=== PATIENT | male | born 1965 | race Hispanic/Latino ===

== ENCOUNTER 2022-06-01 19:08 | Inpatient (IN) | payer BC ==
[2022-06-01 20:36] LABS: Absolute Lymphocytes (CBC) 1.9 K/uL (0.7-4.9); Hematocrit 45.6 % (39.6-49.0); Lymphocytes % 20.6 % (15.3-44.8); MCV 93.9 fL (80-100); MPV 9.5 fL (7.6-11.3); RBC Red Blood Cell Count 4.85 M/uL (4.33-5.43)
[2022-06-01] MEDS ORDERED: NA CHLORIDE 0.9% 1,000 ML ONE ×2 (20:46→22:08)
[2022-06-01 21:14] LABS: Urine Blood Trace-intact (Negative); Urine Glucose 2+ (Negative); Urine Protein Negative (Negative)
[2022-06-01 21:15] LABS: Arterial Blood Carboxyhemoglob 0.9 % (0-1.5); Blood Gas Oxyhemoglobin 92.9 % (94-97)
[2022-06-01 21:16] LABS: Albumin 3.9 g/dL (3.4-5.0); Bilirubin Total 0.7 mg/dL (0.2-1.0); Magnesium 2.4 mg/dL (1.8-2.4); Potassium 4.3 mmol/L (3.5-5.1); Protein, Total 8.5 g/dL (6.4-8.2); Troponin High Sensitivity 12.3 pg/mL (<58.9)
[2022-06-01 21:41] LABS: Urine RBC <5 /HPF (None Seen)
--- NOTE | 2022-06-01 21:54 | ER ---
Nurse's Notes [facility] Name: Adan Dong Age: 56 yrs Sex: Male : 1965 Arrival Date: 06/01/2022 Time: 19:20 Bed 17 Private MD: Diagnosis: New onset diabetes with diabetic ketoacidosis Presentation: 06/01 19:59 Chief complaint: Patient states: Sunday he had blood work by his primary care dr Dr. mile GURROLA in [place] called today and told results he needs to get to an ER; blurry vision and fatigue, thirsty, and peeing a lot. Alcoholism (beer daily), high pressure. Coronavirus screen: Vaccine status: Patient reports receiving the 2nd dose of the covid vaccine. Client denies travel out of the [place] in the last 14 days. At this time, the client does not indicate any symptoms associated with coronavirus-19. Ebola Screen: Patient negative for fever greater than or equal to 101.5 degrees Fahrenheit, and additional compatible Ebola Virus Disease symptoms Patient denies exposure to infectious person. Patient denies travel to an Ebola-affected area in the 21 days before illness onset. No acute neurological deficit is noted. Initial Sepsis Screen: Does the patient meet any 2 criteria? No. Patient's initial sepsis screen is negative. Does the patient have a suspected source of infection? No. Patient's initial sepsis screen is negative. Risk Assessment: Do you want to hurt yourself or someone else? Patient reports no desire to harm self or others. Onset of symptoms was May 2022. 19:59 Method Of Arrival: Ambulatory [facility] 19:59 Acuity: ROGELIO 3 5 Triage Assessment: 20:05 The onset of the patients symptoms was. General: Appears in no apparent distress. jh5 slender, well groomed, well developed, Behavior is calm, cooperative, appropriate for age. Pain: Denies pain. Neuro: Reports blurred vision. 22:32 The onset of the patients symptoms was. kl Historical: - Allergies: 20:05 No Known Allergies; jh5 - PMHx: 20:05 new onset diabetes; hyptertension; jh5 - PSHx: 20:05 None; jh5 - Immunization history:: Adult Immunizations up to date. - Social history:: Smoking status: Patient denies any tobacco usage or history of. Patient uses alcohol, on a daily basis. Screenin:55 Abuse screen: Denies threats or abuse. Nutritional screening: No deficits noted. kl Tuberculosis screening: No symptoms or risk factors identified. Fall Risk None identified. Assessment: 20:53 VAN Scoring: Arm Drift: Patients demonstrates NO arm weakness. Patient is VAN Negative. kl Patient has been NPO before screening. The patient is alert, and able to follow commands. The patient does not exhibit slurred or garbled speech. The patient is not exhibiting difficulty speaking. The patient is exhibiting difficulty understanding words. The patient is able to swallow own secretions with no drooling or need for suction. Patient tolerated one teaspoon of water. No drooling, immediate coughing, gurgling, or clearing of the throat was noted. The patient tolerated 90mL of water. No drooling, immediate coughing, gurgling, or clearing of the throat was noted. The patient passed the bedside swallow screening. Oral medications may be given as ordered. Contact Physician for further diet orders. TNKase (Tenecteplase) Screening: Indications:. 20:54 General: Appears in no apparent distress. comfortable, Behavior is calm, cooperative, kl Reports fatigue for. Pain: Denies pain. Neuro: No deficits noted. Cardiovascular: No deficits noted. Respiratory: No deficits noted. GI: No deficits noted. : No deficits noted. Vital Signs: 19:59 BP 125 / 87; Pulse 80; Resp 18; Temp 98.6; Pulse Ox 99% ; Weight 68.04 kg; Height 5 ft. jh5 6 in. (167.64 cm); Pain 0/10; 21:15 BP 122 / 84; Pulse 82; Resp 16; Pulse Ox 95% ; Pain 0/10; kl 22:32 BP 125 / 80; Pulse 69; Pulse Ox 95% on R/A; kl 23:06 BP 119 / 73; Pulse 70; kl 19:59 Body Mass Index 24.21 (68.04 kg, 167.64 cm) jh5 NIH Stroke Scale Scores: 20:53 NIHSS Score: 0 ED Course: 19:20 Patient arrived in ED. dt4 20:00 Tamela Mckeon MD is Attending Physician. sd2 20:05 Triage completed. jh5 20:05 Arm band placed on right wrist. jh5 20:29 Inserted saline lock: 20 gauge in right antecubital area, using aseptic technique. ds4 Blood collected. 21:16 ABG: Venous blood gas please NOT arterial Sent. 21:16 Magnesium Sent. 21:16 Troponin High Sensitivity Sent. 21:16 CMP Sent. 21:52 Davis Jimenez is Hospitalizing Provider. sd2 22:32 No provider procedures requiring assistance completed. Patient admitted, IV remains in kl place. 06/02 10:02 Monique Reed, RN is Primary Nurse. db Administered Medications: 06/01 20:53 Drug: NS 0.9% 1000 ml Route: IV; Rate: 1 bolus; Site: right antecubital; kl 22:22 Drug: NS 0.9% 1000 ml Route: IV; Rate: 1 bolus; Site: right forearm; kl 22:34 Drug: Insulin Drip - (Insulin Regular Human 100 units, NS 0.9% 100 ml) {Co-Signature: clarice horn (Akua Mahmood RN).} Route: IV; Rate: calculated rate; Site: right forearm; 22:35 Drug: Insulin Regular Human 10 units {Co-Signature: justina (Akua Mahmood RN).} Route: IVP; Site: right forearm; Medication: 20:55 VIS not applicable for this client. Point of Care Testing: Blood Glucose: 20:05 Blood Glucose: 500 mg/dL; [facility] Ranges: Outcome: 21:53 Decision to Hospitalize by Provider. sd2 22:32 Admitted to ER Hold. Please see [facility] for further documentation. 22:32 Condition: improved 22:32 Instructed on the need for admit. 06/02 17:32 Patient left the ED. mb8 NIH Stroke Scale - NIH Stroke Score Date: 06/01/2022 Time: 20:53 Total Score = 0 1a. Level of Consciousness (LOC) - 0(Alert) 1b. Level of Consciousness (LOC) (Month \T\ Age) - 0(Both) 1c. LOC Commands (Open \T\ Closes Eyes/Marketing Information Coordinator) - 0(Both) 2. Best Gaze (Lateral Gaze Paresis) - 0(Normal) 3. Visual Field Loss - 0(No visual loss) 4. Facial Palsy - 0(Normal) 5a. Left Arm: Motor (10-second hold) - 0(No drift) 5b. Right Arm: Motor (10-second hold) - 0(No drift) 6a. Left Leg: Motor (5-second hold - always test supine) - 0(No drift) 6b. Right Leg: Motor (5-second hold - always test supine) - 0(No drift) 7. Limb Ataxia (finger/nose \T\ heel/sykes - test with eyes open) - 0(Absent) 8. Sensory Loss (pinprick arms/legs/face) - 0(Normal) 9. Best Language: Aphasia (description/naming/reading) - 0(No aphasia) 10. Dysarthria (speech clarity - read or repeat words) - 0(Normal) 11. Extinction and Inattention (visual/tactile/auditory/spatial/personal) - 0(No abnormality) Initials: kl Signatures: Lien Booker RN RN Devyn Sloan ds4 Karla Villalobos RN RN 5 Tamela Mckeon MD MD sd2 Harshal Cui RN RN mb8 Nannette Bowser dt4 Monique Reed RN RN db Akua Mahmood RN bb Corrections: (The following items were deleted from the chart) 06/01 20:05 20:05 PMHx: None; [place] [id number]
--- NOTE | 2022-06-01 21:54 | EDPHYS ---
Physician Documentation [facility] Name: Adan Dong Age: 56 yrs Sex: Male : 1965 Arrival Date: 06/01/2022 Time: 19:20 Bed 17 Private MD: ED Physician Tamela Mckeon HPI: 06/01 20:15 This 56 yrs old Male presents to ER via Ambulatory with complaints of High sd2 Blood Sugar, Weakness, Redness of Eye. 20:15 56-year-old male presents with chief complaint of abnormal labs. He has had ongoing sd2 polyuria and polydipsia for the past week as well as weakness and was seen by his primary care doctor who performed labs on him and told him to come to the ER due to his blood sugar reading high. The patient has no prior history of diabetes but his father does have diabetes. He does take medications for hypertension but otherwise has no other medical problems. No recent illness or changes in medications or diet.. Historical: - Allergies: 20:05 No Known Allergies; jh5 - PMHx: 20:05 new onset diabetes; hyptertension; 5 - PSHx: 20:05 None; [facility] - Immunization history:: Adult Immunizations up to date. - Social history:: Smoking status: Patient denies any tobacco usage or history of. Patient uses alcohol, on a daily basis. ROS: 20:15 Constitutional: Negative for fever, chills, and weight loss, Cardiovascular: Negative sd2 for chest pain, palpitations, and edema, Respiratory: Negative for shortness of breath, cough, wheezing. Abdomen/GI: Negative for abdominal pain, nausea, vomiting, diarrhea. : Negative for dysuria or hematuria. Positive for frequency. MS/Extremity: Negative for injury and deformity, Skin: Negative for injury, rash, and discoloration, Neuro: Negative for headache, numbness and tingling. Endocrine: Positive for polyuria and polydipsia, hyperglycemia Exam: 20:15 Constitutional: This is a well developed, well nourished patient who is awake, alert, sd2 and in no acute distress. Head/Face: Normocephalic, atraumatic. Eyes: EOMI, normal conjunctiva bilaterally Chest/axilla: Normal chest wall appearance and motion. Nontender with no deformity. Cardiovascular: Regular rate and rhythm with a normal S1 and S2. No gallops, murmurs, or rubs. 2+ distal pulses. Respiratory: Lungs have equal breath sounds bilaterally, clear to auscultation and percussion. No rales, rhonchi or wheezes noted. No increased work of breathing, no retractions or nasal flaring. Abdomen/GI: Soft, non-tender, with normal bowel sounds. No guarding or rebound. No evidence of tenderness throughout. Skin: Warm, dry with normal turgor. Normal color with no rashes, no lesions, and no evidence of cellulitis. MS/ Extremity: Pulses equal, no cyanosis. Neurovascular intact. Full, normal range of motion. Ambulatory without difficulty. Psych: Awake, alert, with orientation to person, place and time. Behavior, mood, and affect are within normal limits. 20:41 ECG was reviewed by the Attending Physician. NSR, rate 76, no STEMI criteria, TWI in sd2 inferior leads Vital Signs: 19:59 BP 125 / 87; Pulse 80; Resp 18; Temp 98.6; Pulse Ox 99% ; Weight 68.04 kg; Height 5 ft. jh5 6 in. (167.64 cm); Pain 0/10; 21:15 BP 122 / 84; Pulse 82; Resp 16; Pulse Ox 95% ; Pain 0/10; kl 22:32 BP 125 / 80; Pulse 69; Pulse Ox 95% on R/A; kl 23:06 BP 119 / 73; Pulse 70; kl 19:59 Body Mass Index 24.21 (68.04 kg, 167.64 cm) jh5 NIH Stroke Scale Scores: 20:53 NIHSS Score: 0 kl MDM: 20:11 Patient medically screened. sd2 20:15 Differential diagnosis: Hyperglycemia, DKA, HHS, dehydration, electrolyte abnormality sd2 among others. Data reviewed: vital signs, nurses notes. 21:51 Data reviewed: lab test result(s), EKG. Counseling: I had a detailed discussion with sd2 the patient and/or guardian regarding: the historical points, exam findings, and any diagnostic results supporting the discharge/admit diagnosis, lab results, the need for further work-up and treatment in the hospital. ED course: Labs and imaging reviewed and consistent with DKA. Insulin bolus given and drip started and 2L NS given as well. Pt to be admitted for further management at this time. . 06/01 20:11 Order name: CBC with Diff; Complete Time: 20:40 sd2 06/01 20:11 Order name: CMP; Complete Time: 21:29 sd2 06/01 20:11 Order name: Magnesium; Complete Time: 21:29 sd2 06/01 20:11 Order name: Troponin High Sensitivity; Complete Time: 21:29 sd2 06/01 20:11 Order name: ABG: Venous blood gas please NOT arterial; Complete Time: 21:29 sd2 06/01 20:11 Order name: Urine Microscopic Only; Complete Time: 21:42 sd2 06/01 20:22 Order name: Glucose, Ancillary Testing; Complete Time: 20:40 EDMS 06/01 21:15 Order name: Urine Dipstick-Ancillary; Complete Time: 21:29 EDMS 06/01 22:37 Order name: SARS RAPID kl 06/01 23:44 Order name: SARS-COV-2 Antigen Rapid EDMS 06/01 23:48 Order name: Glucose, Ancillary Testing EDMS 06/02 00:53 Order name: Glucose, Ancillary Testing EDMS 06/02 01:11 Order name: Acetone Level EDMS 06/02 02:08 Order name: Glucose, Ancillary Testing EDMS 06/02 02:38 Order name: Basic Metabolic Panel EDMS 06/02 02:41 Order name: Osmolality, Serum EDMS 06/02 03:22 Order name: Glucose, Ancillary Testing EDMS 06/02 04:09 Order name: Glucose, Ancillary Testing EDMS 06/02 05:10 Order name: Glucose, Ancillary Testing EDMS 06/02 05:30 Order name: CBC with Automated Diff EDMS 06/02 05:39 Order name: Acetone Level EDMS 06/02 05:46 Order name: Basic Metabolic Panel EDMS 06/02 05:46 Order name: Phosphorus EDMS 06/02 05:46 Order name: Lipid Profile EDMS 06/02 05:46 Order name: Magnesium EDMS 06/02 06:19 Order name: Glucose, Ancillary Testing EDMS 06/02 07:13 Order name: Glucose, Ancillary Testing EDMS 06/02 08:08 Order name: Glucose, Ancillary Testing EDMS 06/02 09:10 Order name: Acetone Level EDMS 06/02 09:17 Order name: Glucose, Ancillary Testing EDMS 06/01 20:11 Order name: EKG - Nurse/Tech; Complete Time: 21:16 sd2 06/01 20:11 Order name: Glucose Level; Complete Time: 20:29 sd2 06/01 20:11 Order name: Urine Dipstick-Ancillary (obtain specimen); Complete Time: 21:16 sd2 06/02 09:42 Order name: Basic Metabolic Panel EDMS 06/02 10:13 Order name: Glucose, Ancillary Testing EDMS 06/02 11:11 Order name: Glucose, Ancillary Testing EDMS 06/02 11:53 Order name: Acetone Level EDMS 06/02 12:05 Order name: Basic Metabolic Panel EDMS 06/02 12:14 Order name: Glucose, Ancillary Testing EDMS 06/02 16:40 Order name: Hemoglobin A1c EDMS 06/02 16:51 Order name: Basic Metabolic Panel EDMS 06/02 16:51 Order name: Acetone Level EDMS 06/02 17:11 Order name: Glucose, Ancillary Testing EDMS Administered Medications: 20:53 Drug: NS 0.9% 1000 ml Route: IV; Rate: 1 bolus; Site: right antecubital; kl 22:22 Drug: NS 0.9% 1000 ml Route: IV; Rate: 1 bolus; Site: right forearm; kl 22:34 Drug: Insulin Drip - (Insulin Regular Human 100 units, NS 0.9% 100 ml) {Co-Signature: clarice horn (Akua Mahmood RN).} Route: IV; Rate: calculated rate; Site: right forearm; 22:35 Drug: Insulin Regular Human 10 units {Co-Signature: justina (Akua Mahmood RN).} Route: kl IVP; Site: right forearm; Point of Care Testing: Blood Glucose: 20:05 Blood Glucose: 500 mg/dL; jh5 Ranges: Critical Glucose Levels:Adult <50 mg/dl or >400 mg/dl <40 mg/dl or >180 mg/dl Disposition Summary: 06/01/22 21:53 Hospitalization Ordered Hospitalization Status: Inpatient Admission sd2 Provider: Davis Jimenez Condition: Stable sd2 Problem: new sd2 Symptoms: have improved sd2 Bed/Room Type: Standard co2 Location: Telemetry/MedSurg (Inpatient)(06/02/22 16:32) Room Assignment: [facility](06/02/22 16:32) dw Diagnosis - New onset diabetes with diabetic ketoacidosis sd2 Forms: - Medication Reconciliation Form sd2 - SBAR form sd2 NIH Stroke Scale - NIH Stroke Score Date: 06/01/2022 Time: 20:53 Total Score = 0 1a. Level of Consciousness (LOC) - 0(Alert) 1b. Level of Consciousness (LOC) (Month \T\ Age) - 0(Both) 1c. LOC Commands (Open \T\ Closes Eyes/Registration Manager) - 0(Both) 2. Best Gaze (Lateral Gaze Paresis) - 0(Normal) 3. Visual Field Loss - 0(No visual loss) 4. Facial Palsy - 0(Normal) 5a. Left Arm: Motor (10-second hold) - 0(No drift) 5b. Right Arm: Motor (10-second hold) - 0(No drift) 6a. Left Leg: Motor (5-second hold - always test supine) - 0(No drift) 6b. Right Leg: Motor (5-second hold - always test supine) - 0(No drift) 7. Limb Ataxia (finger/nose \T\ heel/sykes - test with eyes open) - 0(Absent) 8. Sensory Loss (pinprick arms/legs/face) - 0(Normal) 9. Best Language: Aphasia (description/naming/reading) - 0(No aphasia) 10. Dysarthria (speech clarity - read or repeat words) - 0(Normal) 11. Extinction and Inattention (visual/tactile/auditory/spatial/personal) - 0(No abnormality) Initials: clarice Signatures: Dispatcher [employer] Lien Marlow RN RN kl Webb, Martha, RN RN mw Woody, Diana, RN RN dw Rees, Jessica, RN RN jh5 Dunlop, Stephanie, MD MD sd2 Akua horn Corrections: (The following items were deleted from the chart) 20:05 20:05 PMHx: None; [facility] 22:27 21:53 [facility] 22:27 21:[facility] 06/02 16:32 06/01 22:27 [facility] ER HOLD [facility] 06/02 16:32 06/01 22:27 ERHOLD- [facility]
[2022-06-01] MEDS ORDERED: INSULIN -REGULAR HUMAN 50 UNIT/0.5 ML ML ONE (22:07)
[2022-06-01] MEDS ORDERED: NA CHLORIDE 0.9% 100 ML IV ONE (22:08)
--- NOTE | 2022-06-01 22:17 | P.HP ---
Certification for Inpatient Patient admitted to: Inpatient With expected LOS: <2 Midnights Patient will require the following post-hospital care: None Practitioner: I am a practitioner with admitting privileges, knowledge of patient current condition, hospital course, and medical plan of care. Services: Services provided to patient in accordance with Admission requirements found in Title 42 Section 412.3 of the Code of Federal Regulations Patient History Date of Service: 06/01/22 Primary Care Provider: Dr. Pham Reason for admission: DKA- New Onset History of Present Illness: Patient is a 56 year old male with hypertension who presented to the ED with complaints of blurry vision, fatigue, polyuria, and polydipsia. Patient reports that he had blood work done with his PCP on Sunday, the results came back today, and he was instructed to come to ED. He states that he used to be a daily beer drinker, but stopped about 3 weeks ago. He states he has lost 20 pounds since. His vital signs are stable today. Patient is awake, alert, and oriented x 3. He is chinese speaking only, but daughter is at bedside translating. His labs are significant for Na 124, Cl 86, glucose 665, BUN 46, Cr 2.13, K 4.3, gap of 17. ABG with pH 7.33, CO2 34.8, and HCO3 17.7. He was given 2L fluids, 10 units insulin, and started on insulin drip. Home medications list reviewed: Yes (NA) - Past Medical/Surgical History Diabetic: Yes -: Hypertension -: Type 2 Diabetes Past Surgical History: Patient denies surgical history Psychosocial/ Personal History: Patient is . - Family History Family History: Reviewed- Non-Contributory - Social History Smoking Status: Never smoker Alcohol use: Yes CD- Drugs: No Caffeine use: Yes Place of Residence: Home Review of Systems General: Weakness, Other (Fatigue) Eyes: Other (Blurry Vision) Genitourinary: Other (Polyuria, Polydipsia) Physical Examination - Physical Exam General: Alert, In no apparent distress HEENT: Atraumatic, PERRLA, EOMI, Sclerae nonicteric Neck: Supple, 2+ carotid pulse no bruit, No LAD, Without JVD or thyroid abnormality Respiratory: Clear to auscultation bilaterally, Normal air movement Cardiovascular: Regular rate/rhythm, Normal S1 S2 Gastrointestinal: Normal bowel sounds, No tenderness Musculoskeletal: No tenderness Integumentary: No rashes Neurological: Normal speech, Normal strength at 5/5 x4 extr, Normal tone, Normal affect - Studies Laboratory Data (last 24 hrs) 06/01/22 20:24: Sodium 124 L, Potassium 4.3, BUN 46 H, Creatinine 2.13 H, Glucose 665 H*, Magnesium 2.4, Total Bilirubin 0.7, AST 7 L, ALT 26, Alkaline Phosphatase 68 06/01/22 20:24: WBC 9.00, Hgb 15.2, Hct 45.6, Plt Count 213 Assessment and Plan - Problems (Diagnosis) (1) DKA (diabetic ketoacidosis) Current Visit: Yes Status: Acute Qualifiers: Diabetes mellitus type: type 2 Diabetes mellitus complication detail: without coma Qualified Code(s): E11.10 - Type 2 diabetes mellitus with ketoacidosis without coma (2) New onset type 2 diabetes mellitus Current Visit: Yes Status: Acute (3) Hypertension Current Visit: Yes Status: Chronic Qualifiers: Hypertension type: primary hypertension Qualified Code(s): I10 - Essential (primary) hypertension - Plan -Insulin drip initiated in ED. Continue per DKA protocol -Aggressive IV fluid hydration -BMP and acetone q4h -A1C and lipid panel in morning -NPO, ice chips and sips of water ok. Patient does not c/o nausea/vomiting -Nephrology consult -Diabetic education counseling -Monitor and replete electrolytes per protocol -Patient denies taking any medications daily -Lovenox for VTE prophylaxis -Full code Discharge Plan: Home Plan to discharge in: 48 Hours - Advance Directives Does patient have a Living Will: No Does patient have a Durable POA for Healthcare: No - Code Status/Comfort Care Code Status Assessed: Yes (Full) Critical Care: No Time Spent Managing Pts Care (In Minutes): 50
[2022-06-01] MEDS ORDERED: NACHLORIDE 0.45% 1,000 ML with POTASSIUM CL 20 MEQ IV SCH ×2 (23:36)
[2022-06-01] MEDS ORDERED: ONDANSETRON 4 MG/2 ML VIAL IV PRN (23:36)
[2022-06-01] MEDS ORDERED: INSULIN -REGULAR HUMAN 100 UNIT in NA CHLORIDE 0.9% 100 ML IV SCH (23:36)
[2022-06-01] MEDS: D5.45NS W/KCL 20MEQ 1,000 ML IV SCH (23:36)
[2022-06-01 23:44] LABS: SARS-CoV-2 Antigen Rapid Res Negative (Negative)
[2022-06-02 00:12] VITALS: BMI 24.1
[2022-06-02] MEDS ORDERED: KCL 20 MEQ/100 mL IVPB 100 ML IV ONE (00:22)
[2022-06-02] MEDS ORDERED: NACHLORIDE 0.45% 1,000 ML IV ONE (00:22)
[2022-06-02 02:34] LABS: BUN Blood Urea Nitrogen 39 mg/dL (7-18); Bicarbonate 22 mmol/L (21-32); Glomerular Filtration Rate 47 ml/min (=/>90); Glucose Level 251 mg/dL (74-106); Potassium 3.7 mmol/L (3.5-5.1); Sodium Level 134 mmol/L (136-145)
[2022-06-02] MEDS: D5.45NS W/KCL 20MEQ 1,000 ML IV SCH ×2 (03:18→09:36)
[2022-06-02] MEDS ORDERED: INSULIN GLARGINE 100 UNIT/ML SQ ONE ×2 (05:00→05:07)
[2022-06-02 05:24] LABS: Absolute Lymphocytes (CBC) 2.3 K/uL (0.7-4.9); Hematocrit 39.8 % (39.6-49.0); Lymphocytes % 29.4 % (15.3-44.8); MCV 91.2 fL (80-100); MPV 9.1 fL (7.6-11.3); RBC Red Blood Cell Count 4.37 M/uL (4.33-5.43)
[2022-06-02 05:46] LABS: BUN Blood Urea Nitrogen 35 mg/dL (7-18); Bicarbonate 24 mmol/L (21-32); Glomerular Filtration Rate 55 ml/min (=/>90); Glucose Level 197 mg/dL (74-106); HDL Cholesterol 37 mg/dL (40-60); LDL Cholesterol, Calculated 121 mg/dL (<130); Magnesium 2.4 mg/dL (1.8-2.4); Phosphorus 2.7 mg/dL (2.5-4.9); Potassium 3.9 mmol/L (3.5-5.1); Sodium Level 137 mmol/L (136-145)
[2022-06-02] MEDS ORDERED: ENOXAPARIN 40 MG/0.4 ML SQ ONE (07:54)
[2022-06-02] MEDS: ENOXAPARIN 40 MG/0.4 ML SQ SCH (08:11)
[2022-06-02] MEDS ORDERED: D5.45NS W/KCL 20MEQ 1,000 ML IV ONE (09:33)
[2022-06-02 09:40] LABS: BUN Blood Urea Nitrogen 31 mg/dL (7-18); Bicarbonate 24 mmol/L (21-32); Glomerular Filtration Rate 61 ml/min (=/>90); Glucose Level 202 mg/dL (74-106); Potassium 4.7 mmol/L (3.5-5.1); Sodium Level 136 mmol/L (136-145)
[2022-06-02 12:05] LABS: BUN Blood Urea Nitrogen 29 mg/dL (7-18); Bicarbonate 26 mmol/L (21-32); Glomerular Filtration Rate 64 ml/min (=/>90); Glucose Level 183 mg/dL (74-106); Potassium 4.1 mmol/L (3.5-5.1); Sodium Level 136 mmol/L (136-145)
[2022-06-02] MEDS ORDERED: D50W 25 GM/50 ML SYRINGE IV PRN (12:05)
[2022-06-02] MEDS ORDERED: GLUCAGON 1 MG/VIAL IM PRN (12:05)
[2022-06-02] MEDS ORDERED: D10W 125 ML IV PRN (12:11)
[2022-06-02] MEDS: INSULIN -REGULAR HUMAN 50 UNIT/0.5 ML ML SQ SCH ×2 (16:30→22:03)
[2022-06-02 16:47] LABS: BUN Blood Urea Nitrogen 30 mg/dL (7-18); Bicarbonate 24 mmol/L (21-32); Glomerular Filtration Rate 58 ml/min (=/>90); Glucose Level 360 mg/dL (74-106); Potassium 4.8 mmol/L (3.5-5.1); Sodium Level 136 mmol/L (136-145)
[2022-06-02] MEDS ORDERED: INSULIN -REGULAR HUMAN 50 UNIT/0.5 ML ML ONE (17:05)
[2022-06-02] MEDS: INSULIN GLARGINE 100 UNIT/ML SQ SCH (17:40)
--- NOTE | 2022-06-02 17:49 | P.PN ---
Subjective Date of Service: 06/02/22 Primary Care Provider: Dr. Pham Chief Complaint: DKA- New Onset Patient has no new complaints. Blood sugar levels improved and patient weaned off insulin drip to subcutaneous insulin. Physical Examination - Vital Signs Temperature: 97.2 F Blood Pressure: 116/68 Pulse: 75 Respirations: 15 Pulse Ox (%): 98 - Studies Laboratory Data (last 24 hrs) 06/01/22 20:24: Sodium 124 L, Potassium 4.3, BUN 46 H, Creatinine 2.13 H, Glucose 665 H*, Magnesium 2.4, Total Bilirubin 0.7, AST 7 L, ALT 26, Alkaline Phosphatase 68 06/01/22 20:24: WBC 9.00, Hgb 15.2, Hct 45.6, Plt Count 213 Assessment And Plan - Current Problems (Diagnosis) (1) DKA (diabetic ketoacidosis) Current Visit: Yes Status: Acute Qualifiers: Diabetes mellitus type: type 2 Diabetes mellitus complication detail: without coma Qualified Code(s): E11.10 - Type 2 diabetes mellitus with ketoacidosis without coma (2) Chronic kidney disease, stage III (moderate) Current Visit: Yes Status: Acute - Plan Physical Exam General: Alert, In no apparent distress Respiratory: Clear to auscultation bilaterally, Normal air movement Cardiovascular: Regular rate/rhythm, Normal S1 S2 Gastrointestinal: Normal bowel sounds, No tenderness Musculoskeletal: No tenderness Integumentary: No rashes Neurological: No focal motor deficit. Plan: Patient weaned off insulin drip and transition to Lantus insulin and insulin sliding scale. Titrate Lantus insulin. Diabetes education. ADA diet. Fingerstick glucose monitoring. Monitor renal function.
[2022-06-03 05:39] LABS: Absolute Lymphocytes (CBC) 2.2 K/uL (0.7-4.9); Hematocrit 41.8 % (39.6-49.0); Lymphocytes % 32.9 % (15.3-44.8); MCV 91.2 fL (80-100); MPV 9.2 fL (7.6-11.3); RBC Red Blood Cell Count 4.58 M/uL (4.33-5.43)
[2022-06-03 05:47] LABS: Magnesium 2.4 mg/dL (1.8-2.4); Phosphorus 2.1 mg/dL (2.5-4.9); Potassium 4.4 mmol/L (3.5-5.1)
[2022-06-03] MEDS: INSULIN -REGULAR HUMAN 50 UNIT/0.5 ML ML SQ SCH ×2 (07:30→11:30)
[2022-06-03] MEDS: INSULIN GLARGINE 100 UNIT/ML SQ SCH (08:27)
[2022-06-03] MEDS: ENOXAPARIN 40 MG/0.4 ML SQ SCH (08:27)
[2022-06-03 09:40] VITALS: O2SAT 97
[2022-06-03] MEDS ORDERED: INSULIN GLARGINE 100 UNIT/ML SQ ONE (12:44)
--- NOTE | 2022-06-03 12:45 | P.DS ---
Admission Date: 06/01/22 Discharge Date: 06/03/22 Primary Care Provider: Dr. Pham Disposition: ROUTINE DISCHARGE Discharge Condition: FAIR Reason for Admission: DKA- New Onset - Problems (1) DKA (diabetic ketoacidosis) Current Visit: Yes Status: Acute Qualifiers: Diabetes mellitus type: type 2 Diabetes mellitus complication detail: without coma Qualified Code(s): E11.10 - Type 2 diabetes mellitus with ketoacidosis without coma (2) Chronic kidney disease, stage III (moderate) Current Visit: Yes Status: Acute Brief History of Present Illness: Patient is a 56 year old male with hypertension who presented to the ED with complaints of blurry vision, fatigue, polyuria, and polydipsia. Patient reports that he had blood work done with his PCP who later instructed him to come to the ED because of abnormal test results. He stated that he used to be a daily beer drinker, but stopped about 3 weeks ago. He stated he has lost 20 pounds since. No altered mental status noted. He is british speaking only. His labs showed Na 124, Cl 86, glucose 665, BUN 46, Cr 2.13, K 4.3, gap of 17. ABG with pH 7.33, CO2 34.8, and HCO3 17.7. He was given 2L fluids, 10 units insulin, and and DKA protocol initiated. Hospital Course: Patient admitted to the ICU on DKA protocol with insulin drip and aggressive IV hydration. BMP was monitored per DKA protocol. DKA resolved within 24 hours. Newly diagnosed diabetes. Patient was transitioned to subcutaneous insulin- Lantus insulin and regular insulin sliding scale. Noted he has CKD 3. Lantus insulin was titrated up to 33 units. Diabetes education provided. Patient discharged with Lantus insulin Vital Signs/Physical Exam: Temp Pulse Resp BP Pulse Ox 98.3 F 56 15 134/72 97 06/03/22 08:00 06/03/22 08:00 06/03/22 08:00 06/03/22 08:00 06/03/22 08:00 General: Alert, In no apparent distress, Oriented x3 HEENT: Mucous membr. moist/pink Neck: Supple, JVD not distended Respiratory: Clear to auscultation bilaterally, Normal air movement Cardiovascular: No edema, Regular rate/rhythm, Normal S1 S2 Gastrointestinal: Normal bowel sounds, Soft and benign, Non-distended, No tenderness Musculoskeletal: No swelling Integumentary: No rashes, No cyanosis Neurological: Normal strength at 5/5 x4 extr Laboratory Data at Discharge: WBC 6.60 K/uL (4.3-10.9) 06/03/22 05:08 Hgb 14.4 g/dL (13.6-17.9) 06/03/22 05:08 Hct 41.8 % (39.6-49.0) 06/03/22 05:08 Plt Count 174 K/uL (152-406) 06/03/22 05:08 Sodium 138 mmol/L (136-145) 06/03/22 05:08 Potassium 4.4 mmol/L (3.5-5.1) 06/03/22 05:08 BUN 24 mg/dL (7-18) H 06/03/22 05:08 Creatinine 1.42 mg/dL (0.55-1.3) H 06/03/22 05:08 Glucose 239 mg/dL (74-106) H 06/03/22 05:08 Phosphorus 2.1 mg/dL (2.5-4.9) L 06/03/22 05:08 Magnesium 2.4 mg/dL (1.8-2.4) 06/03/22 05:08 Total Bilirubin 0.7 mg/dL (0.2-1.0) 06/01/22 20:24 AST 7 U/L (15-37) L 06/01/22 20:24 ALT 26 U/L (12-78) 06/01/22 20:24 Alkaline Phosphatase 68 U/L (45-117) 06/01/22 20:24 Triglycerides 287 mg/dL (<150) H 06/02/22 05:07 Cholesterol 215 mg/dL (<200) H 06/02/22 05:07 HDL Cholesterol 37 mg/dL (40-60) L 06/02/22 05:07 Cholesterol/HDL Ratio 5.81 06/02/22 05:07 Home Medications: Lisinopril/Hydrochlorothiazide [Lisinopril-Hctz 10-12.5 mg Tab] 1 tab PO DAILY 06/02/22 Nystatin 06/02/22 Alcohol Antiseptic Pads [Alcohol Swabs] 1 each TP TID #100 pad 06/03/22 Blood Sugar Diagnostic, Disc [Breeze 2] 1 each MC TID #30 strip 06/03/22 Blood-Glucose Meter [Blood Glucose Monitoring] 1 each MC TID #1 kit 06/03/22 Insulin Glargine,Hum.rec.anlog [Lantus Solostar] 30 unit SQ DAILY #15 ml 06/03/22 Pen Needle, Diabetic [Insulin Pen Needle] 1 dis.ndl MC TID #100 dis.ndl 06/03/22 New Medications: Alcohol Antiseptic Pads [Alcohol Swabs] 1 each TP TID #100 pad Blood-Glucose Meter [Blood Glucose Monitoring] 1 each MC TID #1 kit Blood Sugar Diagnostic, Disc [Breeze 2] 1 each MC TID #30 strip Pen Needle, Diabetic [Insulin Pen Needle] 1 dis.ndl MC TID #100 dis.ndl Insulin Glargine,Hum.rec.anlog [Lantus Solostar] 30 unit SQ DAILY #15 ml Diet: ADA Activity: Ad kaveh Followup: MAGED LYNNE [Primary Care Provider] - 1 Week (call to schedule an appointment) Time spent managing pt's care (in minutes): 35
[2022-06-03 13:17] VITALS: BP 130/77; TEMP 97.5
--- NOTE | 2022-06-03 16:56 | EKG ---
Test Date: 2022-06-01 Test Time: 20:31:06 Network Coordinator: ALYSHA MEASUREMENT RESULTS: Intervals: Rate: 76 [place]: 134 QRSD: 74 QT: 370 QTc: 416 [place]: P: 54 [place]: 134 QRS: 36 T: 5 INTERPRETIVE STATEMENTS: Normal sinus rhythm Nonspecific T wave abnormality Abnormal ECG No previous ECG available for comparison Electronically Signed On 06-03-22 16:53:59 CDT by Christoph Underwood
== END 2022-06-03 13:25 | disposition home or self-care (01) | DRG 639 ==
LOC: ER 19:08 → ERHOLD 22:38 → 4TH 06-02 17:19
PROVIDERS: ADMIT Internal Medicine; ATTEND Internal Medicine
DX: E11.10 Type 2 diabetes mellitus with ketoacidosis without coma (principal); I12.9 Hypertensive chronic kidney disease with stage 1 through stage 4 chronic kidney disease, or unspecified chronic kidney disease; E11.22 Type 2 diabetes mellitus with diabetic chronic kidney disease; N18.30 Chronic kidney disease, stage 3 unspecified; Z71.3 Dietary counseling and surveillance; Z20.822 Contact with and (suspected) exposure to COVID-19
CPT/HCPCS: 36415; 80048; 80053; 80061; 81003; 81015; 82010; 82805; 82947; 83036; 83735; 83930; 84100; 84484; 85025; 87811; 93005; 96374; 99285; J1650; J1815; J3480; J7030

== ENCOUNTER 2024-06-08 10:21 | Inpatient (IN) | payer BC ==
--- OUTSIDE RECORDS SUMMARY | 2024-06-08 10:24 | XMS REPORT | Continuity of Care Document ---
Author Name Unknown Address [address] [facility] [address] [place] [address] [facility] thconnect Address [address] [facility] [address] [place] [address] Care Team Providers Care Renal Nurse Name Role Phone Bonita Powers Primary Care Physician [phone] Medications Ordered Medication Name Filled Medication Name Start Date Stop Date Current Medication? Ordering Clinician Indication Dosage Frequency Signature (SIG) Comments Components Source Flonase Allergy Relief 50 mcg/actuati on nasal spray,suspe nsion 2023-08 0-05 00:00: 00 Yes 1mcg/ac tuation Gino Ivey atorvastati n 20 mg tablet 7-31 00:00: 00 Yes 1mg Gino Ivey atorvastati n 10 mg tablet 7-27 00:00: 00 Yes mg Gino Ivey lisinopril 10 mg-hydrochl orothiazide 12.5 mg tablet 7-27 00:00: 00 Yes mg Gino Ivey metformin ER 500 mg tablet,exte nded release 24 hr -27 00:00: 00 Yes mg Gino Ivey atorvastati n 10 mg tablet 5-25 00:00: 00 Yes mg Gino Ivey lisinopril 10 mg-hydrochl orothiazide 12.5 mg tablet 5-25 00:00: 00 Yes mg Gino Ivey metformin ER 500 mg tablet,exte nded release 24 hr 5-25 00:00: 00 Yes mg Gino Ivey atorvastati n 10 mg tablet 0 2-06 00:00: 00 Yes mg Gino Ivey lisinopril 10 mg-hydrochl orothiazide 12.5 mg tablet 2-06 00:00: 00 Yes mg Gino Ivey TAKE 1 TABLET EVERY 6 TO 8 HOURS NEEDED FOR COUGH. 2022-08 00:00: 00 09-20 00:00 :00 No 100 Gino Ivey TAKE 1 TABLET DAILY. 2022-08 00:00: 00 09-20 00:00 :00 No 10 Gino Ivey metformin ER 500 mg tablet,exte nded release 24 hr - 00:00: 00 Yes mg Gino Ivey TAKE 1 TABLET BY MOUTH EVERY DAY - 00:00: 00 Yes Gino Ivey TAKE 1 TABLET BY MOUTH AT BEDTIME 04-02 00:00: 00 Yes Gino Ivey TAKE 1 TABLET BY MOUTH EVERY DAY 12-18 00:00: 00 Yes Gino Ivey LISINOP/HCT Z 10-12.5 3-07 00:00: 00 Yes Gino Ivey FAMOTIDINE 40 MG TABS - 00:00: 00 Yes 40 Gino Ivey PIOGLITAZON E HCL 15 MG TABS -17 00:00: 00 Yes 15 Gino Ivey TAKE 1 TABLET BY MOUTH EVERY DAY 2021-08 00:00: 00 Yes Gino Ivey LISINOP/HCT Z 10-12.5 2021-08 2- 00:00: 00 Yes Gino Ivey TAKE 2 TABLETS BY MOUTH TWICE DAILY WITH THE EVENING MEAL 2021-08 00:00: 00 Yes Gino Ivey TAKE 2 TABLETS BY MOUTH TWICE DAILY 2021-08 00:00: 00 Yes Gino Ivey ATORVASTATI N CALCIUM 10 MG TABS 2021-08 0- 00:00: 00 Yes 10 Gino Ivey ADMINISTER 30 UNITS UNDER THE SKIN DAILY 2021-08 0- 00:00: 00 Yes Gino Ivye TAKE 1 TABLET BY MOUTH EVERY DAY 2021-08 0 00:00: 00 Yes Gino Ivey SWISH AND SPIT 4 ML BY MOUTH FOUR TIMES DAILY FOR 14 DAYS 2021-08- 00:00: 00 Yes Gino Niesha Ivey Vital Signs Vital Name Observation Time Observation Value Comments S donnell BP Systolic 2024-05-17 09:34:00 150 mm[Hg] Step hen F Uche BP Diastolic 2024-05-17 09:34:00 85 mm[Hg] Ubaldo phen F Uche Weight Measured 2024-05-17 09:34:00 181.80 pounds Gino F Uche Height Measured 2024-05-17 09:34:00 66.00 inches Gino F Uche Body Temperature 2024-05-17 09:34:00 97.90 degrees Gino F Uche Heart Rate 2024-05-17 09:34:00 65.00 /min Martita en F Uche Respiratory Rate 2024-05-17 09:34:00 16.00 /min Gino F Uche BP Systolic 2024-03-08 11:36:00 131 mm[Hg] Step hen F Uche BP Diastolic 2024-03-08 11:36:00 78 mm[Hg] Ubaldo phen F Uche Weight Measured 2024-03-08 11:36:00 185.20 pounds Gino F Uche Height Measured 2024-03-08 11:36:00 66.00 inches Gino F Uche Body Temperature 2024-03-08 11:36:00 97.50 degrees Gino F Uche Heart Rate 2024-03-08 11:36:00 60.00 /min Martita en F Uche Respiratory Rate 2024-03-08 11:36:00 18.00 /min Gino F Uche Heart Rate 2024-01-05 14:33:00 90.00 /min Martita en F Uche Respiratory Rate 2024-01-05 14:33:00 16.00 /min Gino F Uche BP Systolic 2024-01-05 14:33:00 133 mm[Hg] Step hen F Uche BP Diastolic 2024-01-05 14:33:00 77 mm[Hg] Ubaldo phen F Uche Weight Measured 2024-01-05 14:33:00 185.80 pounds Gino F Uche Height Measured 2024-01-05 14:33:00 66.00 inches Gino F Uche Body Temperature 2024-01-05 14:33:00 98.20 degrees Gino F Uche BP Systolic 2023-04-02 09:30:00 152 mm[Hg] Step hen F Uche BP Diastolic 2023-04-02 09:30:00 91 mm[Hg] Ubaldo Ivey Weight Measured 2023-04-02 09:30:00 166.80 pounds Gino Ivey Height Measured 2023-04-02 09:30:00 66.00 inches Gino Ivey Body Temperature 2023-04-02 09:30:00 98.10 degrees Gino Ivey Heart Rate 2023-04-02 09:30:00 96.00 /min Martita Ivey Respiratory Rate 2023-04-02 09:30:00 17.00 /min Gino Ivey Encounters Start Date/Time End Date/Time Encounter Type Admission Type Attending [facility] Care Department Encounter ID Source 2024-05-17 09:25:34 2024-05-17 09:25:34 Outpatient [facility] [id number] Gino Ivey 2024-05-17 00:00:00 2024-05-17 00:00:00 Outpatient Visit [facility] [id number] Gino Ivey 2024-03-08 00:00:00 2024-03-08 00:00:00 Outpatient Visit [facility] [id number] Gino Ivey 2024-01-05 14:24:27 2024-01-05 14:24:27 Outpatient [facility] [id number] Gino Ivey 2024-01-05 00:00:00 2024-01-05 00:00:00 Outpatient Visit [facility] [id number] Gino Ivey 2023-04-02 09:16:14 2023-04-02 09:16:14 Outpatient [facility] [id number] Gino Ivey Results Test Description Test Time Test Comments Results Result Co mments Source COMPREHENSIVE METABOLIC [id number] 00:00:00* Test Item Value Reference Range Interpretation Comme nts GLUCOSE (test code = 2217) 107 MG/DL BUN (test code = 2208) 23 MG/DL CREATININE (test code = 2214) 1.61 MG/DL eGFR (2020 CKD-EPI) (test co de = 15572) 50 ML/MIN/1.73 CALC BUN/CREAT (test code = 2235) 14 RATIO SODIUM (test code = 2231) 139 MEQ/L POTASSIUM (test code = 2228) 4.3 MEQ/L CHLORIDE (test code = 2215) 102 MEQ/L CARBON DIOXIDE (test code = 2206) 23 MEQ/L CALCIUM (test code = 2209) 9.3 MG/DL PROTEIN, TOTAL (test code = 2229) 7.3 G/DL ALBUMIN (test code = 2201) 4.7 G/DL CALC GLOBULIN (test code = 2240) 2.6 G/DL CALC A/G RATIO (test code = 2234) 1.8 RATIO BILIRUBIN, TOTAL (test code = 2207) 0.6 MG/DL ALKALINE PHOSPHATASE (test code = 2204) 50 U/L AST (test code = 2218) 14 U/L ALT (test code = 2219) 17 U/L Gino IveyHEMOGLOBIN [id number] 02:28:01* Test Item Value Reference Range Interpretation Comme nts HEMOGLOBIN A1c (test code = 72232) 6.7 % 4.2-5.6 H [employer] GUIDELINES FOR HGB A1C: PREDIABETES/INCREASED RISK . . . . . . . 5.7-6.4% DIAGNOSIS OF DIABETES . . . . . . . . . >=6.5% WITH CONFIRMATION OR APPROPRIATE SYMPTOMS NOTE: ASSAY MAY BE AFFECTED BY HEMOGLOBINOPATHIES (SICKLE CELL ANEMIA, S-C DISEASE, OTHERS) OR ARTIFICIALLY LOWERED BY DECREASED RED CELL SURVIVAL (HEMOLYTIC ANEMIAS, BLOOD LOSS, ETC.). CONSIDER ALTERNATE TESTING OR LABORATORY CONSULTATION. UNLESS OTHERWISE INDICATED, ALL TESTING PERFORMED AT [facility] [address] [place] [address] QUALITY CONTROL ASSISTANT: MONI SAN M.D. [place] NUMBER [id number] [facility] [place]. [id number] HEMOGLOBIN [id number] 00:00:00* Test Item Value Reference Range Interpretation Comme nts HEMOGLOBIN A1c (test code = 76296) 6.7 % Gino IveyLIPID [id number] 00:40:01* Test Item Value Reference Range Interpretation Comme nts CHOLESTEROL (test code = 2210) 201 MG/DL <200 H TRIGLYCERIDES (test code = 2232) 155 MG/DL <150 H HDL CHOLESTEROL (test code = 2220) 57 MG/DL >39 CALC LDL CHOL (test code = 7) 117 MG/DL <100 H NOTE: CALCULATED LDL IS BASED ON SAHRA-PEREIRA METHOD WHICHINCLUDES ADJUSTABLE TRIGLYCERIDE:VLDL CHOLESTEROL RATIO.THIS FACTOR VARIES BY MEASURED TRIGLYCERIDE AND NON-HDLCHOLESTEROL CONCENTRATIONS WITH INCREASED CALCULATED LDL SEENIN HIGHER TRIGLYCERIDE OR LOWER NON-HDL SPECIMENS. FOR MOREINFORMATION, SEE CLIENT ANNOUNCEMENT AT [email or web address] RISK RATIO LDL/HDL (test code = 2237) 2.05 RATIO <3.55 COMPREHENSIVE METABOLIC [id number] 00:40:01* Test Item Value Reference Range Interpretation Comme nts GLUCOSE (test code = 2216) 112 MG/DL 70-99 H BUN (test code = 2207) 21 MG/DL 6-20 H CREATININE (test code = 2213) 1.54 MG/DL 0.80-1.40 H eGFR (2020 CKD-EPI) (test code = 92387) 53 ML/MIN/1.73 >60 L The NKF-ASN Taskforce recommends use of Cystatin C to confirm eGFR inadults at risk for CKD. [facility] offers eGFR with Cystatin C-Creatinineusing the 2020 CKD-EPI eGFR_creat-cystat equation (order code 3057) toincrease the accuracy of estimated GFR. For more information, contactyour radio sales account executive or see announcement [email or web address] CALC BUN/CREAT (test code = 2234) 14 RATIO 6-28 SODIUM (test code = 2230) 139 MEQ/L 133-146 POTASSIUM (test code = 2227) 4.9 MEQ/L 3.5-5.4 CHLORIDE (test code = 2214) 99 MEQ/L 95-107 CARBON DIOXIDE (test code = 2205) 24 MEQ/L 19-31 CALCIUM (test code = 2208) 9.9 MG/DL 8.5-10.5 PROTEIN, TOTAL (test code = 2228) 7.7 G/DL 6.1-8.3 ALBUMIN (test code = 2200) 5.0 G/DL 3.5-5.2 CALC GLOBULIN (test code = 2240) 2.7 G/DL 1.9-3.7 CALC A/G RATIO (test code = 2234) 1.9 RATIO 1.0-2.6 BILIRUBIN, TOTAL (test code = 2207) 0.3 MG/DL <=1.2 ALKALINE PHOSPHATASE (test code = 2204) 51 U/L 40-123 AST (test code = 2218) 14 U/L 9-50 ALT (test code = 2219) 15 U/L 5-50 LIPID [id number] 00:00:00* Test Item Value Reference Range Interpretation Comme nts CHOLESTEROL (test code = 2210) 201 MG/DL TRIGLYCERIDES (test code = 2232) 155 MG/DL HDL CHOLESTEROL (test code = 2220) 57 MG/DL CALC LDL CHOL (test code = 2237) 117 MG/DL RISK RATIO LDL/HDL (test cod e = 2238) 2.05 RATIO Gino IveyCOMPREHENSIVE METABOLIC [id number] 00:00:00* Test Item Value Reference Range Interpretation Comme nts GLUCOSE (test code = 2217) 112 MG/DL BUN (test code = 2208) 21 MG/DL CREATININE (test code = 2214) 1.54 MG/DL eGFR (2020 CKD-EPI) (test co de = 88729) 53 ML/MIN/1.73 CALC BUN/CREAT (test code = 2235) 14 RATIO SODIUM (test code = 2231) 139 MEQ/L POTASSIUM (test code = 2228) 4.9 MEQ/L CHLORIDE (test code = 2215) 99 MEQ/L CARBON DIOXIDE (test code = 2206) 24 MEQ/L CALCIUM (test code = 2209) 9.9 MG/DL PROTEIN, TOTAL (test code = 2229) 7.7 G/DL ALBUMIN (test code = 2201) 5.0 G/DL CALC GLOBULIN (test code = 2240) 2.7 G/DL CALC A/G RATIO (test code = 2234) 1.9 RATIO BILIRUBIN, TOTAL (test code = 2207) 0.3 MG/DL ALKALINE PHOSPHATASE (test code = 2204) 51 U/L AST (test code = 2218) 14 U/L ALT (test code = 2219) 15 U/L Gino IveyLIPID [id number] 00:00:00* Test Item Value Reference Range Interpretation Comme nts CHOLESTEROL (test code = 2210) 201 MG/DL TRIGLYCERIDES (test code = 2232) 155 MG/DL HDL CHOLESTEROL (test code = 2220) 57 MG/DL CALC LDL CHOL (test code = 2237) 117 MG/DL RISK RATIO LDL/HDL (test cod e = 2238) 2.05 RATIO Gino IveyCOMPREHENSIVE METABOLIC [id number] 00:00:00* Test Item Value Reference Range Interpretation Comme nts GLUCOSE (test code = 2217) 112 MG/DL BUN (test code = 2208) 21 MG/DL CREATININE (test code = 2214) 1.54 MG/DL eGFR (2020 CKD-EPI) (test co de = 65442) 53 ML/MIN/1.73 CALC BUN/CREAT (test code = 2235) 14 RATIO SODIUM (test code = 2231) 139 MEQ/L POTASSIUM (test code = 2228) 4.9 MEQ/L CHLORIDE (test code = 2215) 99 MEQ/L CARBON DIOXIDE (test code = 2206) 24 MEQ/L CALCIUM (test code = 2209) 9.9 MG/DL PROTEIN, TOTAL (test code = 2229) 7.7 G/DL ALBUMIN (test code = 2201) 5.0 G/DL CALC GLOBULIN (test code = 2240) 2.7 G/DL CALC A/G RATIO (test code = 2234) 1.9 RATIO BILIRUBIN, TOTAL (test code = 2207) 0.3 MG/DL ALKALINE PHOSPHATASE (test code = 2204) 51 U/L AST (test code = 2218) 14 U/L ALT (test code = 2219) 15 U/L Gino IveyCBC W/AUTO DIFF WITH [id number] 05:40:37* Test Item Value Reference Range Interpretation Comme nts WBC (test code = 1001) 7.0 K/UL 3.5-11.0 RBC (test code = 1002) 4.97 M/UL 4.50-6.10 HEMOGLOBIN (test code = 1003) 15.8 G/DL 13.5-17.0 HEMATOCRIT (test code = 1004) 47.4 % 40.0-51.0 MCV (test code = 1005) 95.4 fL 80.0-99.0 MCH (test code = 1006) 31.8 PG 25.0-33.0 MCHC (test code = 1007) 33.3 G/DL 31.0-36.0 RDW (test code = 1038) 12.2 % 11.5-15.0 NEUTROPHILS (test code = 1008) 61.5 % LYMPHOCYTES (test code = 1010) 26.4 % MONOCYTES (test code = 1011) 8.0 % EOSINOPHILS (test code = 1012) 2.9 % BASOPHILS (test code = 1013) 0.9 % IMMATURE GRANULOCYTES (test code = 1036) 0.3 % NUCLEATED RBCS (test code = 1065) 0.0 /100 WBC'S See_Comment [Automated Impulsiva ge] The system which generated this result transmitted reference range: 0.0. The reference range was not used to interpret this result as normal/abnormal. PLATELET COUNT (test code = 1015) 220 K/UL 130-400 ABSOLUTE NEUTROPHILS (test code = 1066) 4.30 K/UL 1.50-7.50 ABSOLUTE LYMPHOCYTES (test code = 1067) 1.84 K/UL 1.00-4.00 ABSOLUTE MONOCYTES (test code = 1068) 0.56 K/UL 0.20-1.00 ABSOLUTE EOSINOPHILS (test code = 1040) 0.20 K/UL 0.00-0.50 ABSOLUTE BASOPHILS (test code = 1069) 0.06 K/UL 0.00-0.20 ABS IMMATURE GRANULOCYTES (test code = 1020) 0.02 K/UL 0.00-0.10 ABS NUCLEATED RBCS (test code = 46373) 0.00 K/UL 0.00-0.11 HEMOGLOBIN [id number] 03:48:18* Test Item Value Reference Range Interpretation Comme nts HEMOGLOBIN A1c (test code = 58212) 6.5 % 4.2-5.6 H [employer] GUIDELINES FOR HGB A1C: PREDIABETES/INCREASED RISK . . . . . . . 5.7-6.4% DIAGNOSIS OF DIABETES . . . . . . . . . >=6.5% WITH CONFIRMATION OR APPROPRIATE SYMPTOMS NOTE: ASSAY MAY BE AFFECTED BY HEMOGLOBINOPATHIES (SICKLE CELL ANEMIA, S-C DISEASE, OTHERS) OR ARTIFICIALLY LOWERED BY DECREASED RED CELL SURVIVAL (HEMOLYTIC ANEMIAS, BLOOD LOSS, ETC.). CONSIDER ALTERNATE TESTING OR LABORATORY CONSULTATION. UNLESS OTHERWISE INDICATED, ALL TESTING PERFORMED AT [facility] [address] [place] [address] QUALITY CONTROL ASSISTANT: Christen FERGUSONIA NUMBER [id number] [facility] [place]. [id number] CBC W/AUTO [id number] 00:00:00* Test Item Value Reference Range Interpretation Comme nts WBC (test code = 1001) 7.0 K/UL RBC (test code = 1002) 4.97 M/UL HEMOGLOBIN (test code = 1003) 15.8 G/DL HEMATOCRIT (test code = 1004) 47.4 % MCV (test code = 1005) 95.4 fL MCH (test code = 1006) 31.8 PG MCHC (test code = 1007) 33.3 G/DL RDW (test code = 1038) 12.2 % NEUTROPHILS (test code = 1008) 61.5 % LYMPHOCYTES (test code = 1010) 26.4 % MONOCYTES (test code = 1011) 8.0 % EOSINOPHILS (test code = 1012) 2.9 % BASOPHILS (test code = 1013) 0.9 % IMMATURE GRANULOCYTES (test code = 1036) 0.3 % NUCLEATED RBCS (test code = 1065) 0.0 /100WBC'S PLATELET COUNT (test code = 1015) 220 K/UL ABSOLUTE NEUTROPHILS (test c ode = 1066) 4.30 K/UL ABSOLUTE LYMPHOCYTES (test c ode = 1067) 1.84 K/UL ABSOLUTE MONOCYTES (test cod e = 1068) 0.56 K/UL ABSOLUTE EOSINOPHILS (test c ode = 1040) 0.20 K/UL ABSOLUTE BASOPHILS (test cod e = 1069) 0.06 K/UL ABS IMMATURE GRANULOCYTES (t est code = 1020) 0.02 K/UL ABS NUCLEATED RBCS (test cod e = 62710) 0.00 K/UL Gino IveyHEMOGLOBIN [id number] 00:00:00* Test Item Value Reference Range Interpretation Comme nts HEMOGLOBIN A1c (test code = 77922) 6.5 % Gino IveyCBC W/AUTO [id number] 00:00:00* Test Item Value Reference Range Interpretation Comme nts WBC (test code = 1001) 7.0 K/UL RBC (test code = 1002) 4.97 M/UL HEMOGLOBIN (test code = 1003) 15.8 G/DL HEMATOCRIT (test code = 1004) 47.4 % MCV (test code = 1005) 95.4 fL MCH (test code = 1006) 31.8 PG MCHC (test code = 1007) 33.3 G/DL RDW (test code = 1038) 12.2 % NEUTROPHILS (test code = 1008) 61.5 % LYMPHOCYTES (test code = 1010) 26.4 % MONOCYTES (test code = 1011) 8.0 % EOSINOPHILS (test code = 1012) 2.9 % BASOPHILS (test code = 1013) 0.9 % IMMATURE GRANULOCYTES (test code = 1036) 0.3 % NUCLEATED RBCS (test code = 1065) 0.0 /100WBC'S PLATELET COUNT (test code = 1015) 220 K/UL ABSOLUTE NEUTROPHILS (test c ode = 1066) 4.30 K/UL ABSOLUTE LYMPHOCYTES (test c ode = 1067) 1.84 K/UL ABSOLUTE MONOCYTES (test cod e = 1068) 0.56 K/UL ABSOLUTE EOSINOPHILS (test c ode = 1040) 0.20 K/UL ABSOLUTE BASOPHILS (test cod e = 1069) 0.06 K/UL ABS IMMATURE GRANULOCYTES (t est code = 1020) 0.02 K/UL ABS NUCLEATED RBCS (test cod e = 17762) 0.00 K/UL Gino IveyHEMOGLOBIN [id number] 00:00:00* Test Item Value Reference Range Interpretation Comme nts HEMOGLOBIN A1c (test code = 37776) 6.5 % Gino IveyLIPID [id number] 00:00:00* Test Item Value Reference Range Interpretation Comme nts CHOLESTEROL (test code = 2210) 168 MG/DL TRIGLYCERIDES (test code = 2232) 86 MG/DL HDL CHOLESTEROL (test code = 2220) 60 MG/DL CALC LDL CHOL (test code = 2237) 90 MG/DL RISK RATIO LDL/HDL (test cod e = 2238) 1.50 RATIO Gino IveyCOMPREHENSIVE METABOLIC [id number] 00:00:00* Test Item Value Reference Range Interpretation Comme nts GLUCOSE (test code = 2217) 99 MG/DL BUN (test code = 2208) 18 MG/DL CREATININE (test code = 2214) 1.44 MG/DL eGFR (2020 CKD-EPI) (test co de = 11077) 57 ML/MIN/1.73 CALC BUN/CREAT (test code = 2235) 13 RATIO SODIUM (test code = 2231) 144 MEQ/L POTASSIUM (test code = 2228) 4.7 MEQ/L CHLORIDE (test code = 2215) 105 MEQ/L CARBON DIOXIDE (test code = 2206) 19 MEQ/L CALCIUM (test code = 2209) 9.6 MG/DL PROTEIN, TOTAL (test code = 2229) 7.2 G/DL ALBUMIN (test code = 2201) 4.9 G/DL CALC GLOBULIN (test code = 2240) 2.3 G/DL CALC A/G RATIO (test code = 2234) 2.1 RATIO BILIRUBIN, TOTAL (test code = 2207) 0.3 MG/DL ALKALINE PHOSPHATASE (test code = 2204) 50 U/L AST (test code = 2218) 14 U/L ALT (test code = 2219) 12 U/L Gino Scherer BarkerLIPID [id number] 00:00:00* Test Item Value Reference Range Interpretation Comme nts CHOLESTEROL (test code = 2210) 168 MG/DL TRIGLYCERIDES (test code = 2232) 86 MG/DL HDL CHOLESTEROL (test code = 2220) 60 MG/DL CALC LDL CHOL (test code = 2237) 90 MG/DL RISK RATIO LDL/HDL (test cod e = 2238) 1.50 RATIO Gino Niesha UcheCOMPREHENSIVE METABOLIC [id number] 00:00:00* Test Item Value Reference Range Interpretation Comme nts GLUCOSE (test code = 2217) 99 MG/DL BUN (test code = 2208) 18 MG/DL CREATININE (test code = 2214) 1.44 MG/DL eGFR (2020 CKD-EPI) (test co de = 44803) 57 ML/MIN/1.73 CALC BUN/CREAT (test code = 2235) 13 RATIO SODIUM (test code = 2231) 144 MEQ/L POTASSIUM (test code = 2228) 4.7 MEQ/L CHLORIDE (test code = 2215) 105 MEQ/L CARBON DIOXIDE (test code = 2206) 19 MEQ/L CALCIUM (test code = 2209) 9.6 MG/DL PROTEIN, TOTAL (test code = 2229) 7.2 G/DL ALBUMIN (test code = 2201) 4.9 G/DL CALC GLOBULIN (test code = 2240) 2.3 G/DL CALC A/G RATIO (test code = 2234) 2.1 RATIO BILIRUBIN, TOTAL (test code = 2207) 0.3 MG/DL ALKALINE PHOSPHATASE (test code = 2204) 50 U/L AST (test code = 2218) 14 U/L ALT (test code = 2219) 12 U/L Gino Scherer AustinLIPID [id number] 00:00:00* Test Item Value Reference Range Interpretation Comme nts CHOLESTEROL (test code = 2210) 168 MG/DL TRIGLYCERIDES (test code = 2232) 86 MG/DL HDL CHOLESTEROL (test code = 2220) 60 MG/DL CALC LDL CHOL (test code = 2237) 90 MG/DL RISK RATIO LDL/HDL (test cod e = 2238) 1.50 RATIO Gino IveyCOMPREHENSIVE METABOLIC [id number] 00:00:00* Test Item Value Reference Range Interpretation Comme nts GLUCOSE (test code = 2217) 99 MG/DL BUN (test code = 2208) 18 MG/DL CREATININE (test code = 2214) 1.44 MG/DL eGFR (2020 CKD-EPI) (test co de = 59467) 57 ML/MIN/1.73 CALC BUN/CREAT (test code = 2235) 13 RATIO SODIUM (test code = 2231) 144 MEQ/L POTASSIUM (test code = 2228) 4.7 MEQ/L CHLORIDE (test code = 2215) 105 MEQ/L CARBON DIOXIDE (test code = 2206) 19 MEQ/L CALCIUM (test code = 2209) 9.6 MG/DL PROTEIN, TOTAL (test code = 2229) 7.2 G/DL ALBUMIN (test code = 2201) 4.9 G/DL CALC GLOBULIN (test code = 2240) 2.3 G/DL CALC A/G RATIO (test code = 2234) 2.1 RATIO BILIRUBIN, TOTAL (test code = 2207) 0.3 MG/DL ALKALINE PHOSPHATASE (test code = 2204) 50 U/L AST (test code = 2218) 14 U/L ALT (test code = 2219) 12 U/L Gino IveyCBC W/AUTO [id number] 00:00:00* Test Item Value Reference Range Interpretation Comme nts WBC (test code = 1001) 6.8 K/UL RBC (test code = 1002) 4.59 M/UL HEMOGLOBIN (test code = 1003) 14.3 G/DL HEMATOCRIT (test code = 1004) 42.7 % MCV (test code = 1005) 93.0 fL MCH (test code = 1006) 31.2 PG MCHC (test code = 1007) 33.5 G/DL RDW (test code = 1038) 12.2 % NEUTROPHILS (test code = 1008) 62.2 % LYMPHOCYTES (test code = 1010) 26.8 % MONOCYTES (test code = 1011) 6.5 % EOSINOPHILS (test code = 1012) 3.7 % BASOPHILS (test code = 1013) 0.7 % IMMATURE GRANULOCYTES (test code = 1036) 0.1 % NUCLEATED RBCS (test code = 1065) 0.0 /100WBC'S PLATELET COUNT (test code = 1015) 215 K/UL ABSOLUTE NEUTROPHILS (test c ode = 1066) 4.20 K/UL ABSOLUTE LYMPHOCYTES (test c ode = 1067) 1.81 K/UL ABSOLUTE MONOCYTES (test cod e = 1068) 0.44 K/UL ABSOLUTE EOSINOPHILS (test c ode = 1040) 0.25 K/UL ABSOLUTE BASOPHILS (test cod e = 1069) 0.05 K/UL ABS IMMATURE GRANULOCYTES (t est code = 1020) 0.01 K/UL ABS NUCLEATED RBCS (test cod e = 45605) 0.00 K/UL Gino IveyHEMOGLOBIN [id number] 00:00:00* Test Item Value Reference Range Interpretation Comme nts HEMOGLOBIN A1c (test code = 12792) 6.1 % Gino IveyTSH, THIRD [id number] 00:00:00* Test Item Value Reference Range Interpretation Comme nts TSH, THIRD GENERATION (test code = 2821) 1.660 UIU/ML Gino IveyCBC W/AUTO [id number] 00:00:00* Test Item Value Reference Range Interpretation Comme nts WBC (test code = 1001) 6.8 K/UL RBC (test code = 1002) 4.59 M/UL HEMOGLOBIN (test code = 1003) 14.3 G/DL HEMATOCRIT (test code = 1004) 42.7 % MCV (test code = 1005) 93.0 fL MCH (test code = 1006) 31.2 PG MCHC (test code = 1007) 33.5 G/DL RDW (test code = 1038) 12.2 % NEUTROPHILS (test code = 1008) 62.2 % LYMPHOCYTES (test code = 1010) 26.8 % MONOCYTES (test code = 1011) 6.5 % EOSINOPHILS (test code = 1012) 3.7 % BASOPHILS (test code = 1013) 0.7 % IMMATURE GRANULOCYTES (test code = 1036) 0.1 % NUCLEATED RBCS (test code = 1065) 0.0 /100WBC'S PLATELET COUNT (test code = 1015) 215 K/UL ABSOLUTE NEUTROPHILS (test c ode = 1066) 4.20 K/UL ABSOLUTE LYMPHOCYTES (test c ode = 1067) 1.81 K/UL ABSOLUTE MONOCYTES (test cod e = 1068) 0.44 K/UL ABSOLUTE EOSINOPHILS (test c ode = 1040) 0.25 K/UL ABSOLUTE BASOPHILS (test cod e = 1069) 0.05 K/UL ABS IMMATURE GRANULOCYTES (t est code = 1020) 0.01 K/UL ABS NUCLEATED RBCS (test cod e = 92754) 0.00 K/UL Gino IveyHEMOGLOBIN [id number] 00:00:00* Test Item Value Reference Range Interpretation Comme nts HEMOGLOBIN A1c (test code = 63059) 6.1 % Gino IveyLIZZH, THIRD [id number] 00:00:00* Test Item Value Reference Range Interpretation Comme nts TSH, THIRD GENERATION (test code = 2821) 1.660 UIU/ML Gino IveyCBC W/AUTO [id number] 00:00:00* Test Item Value Reference Range Interpretation Comme nts WBC (test code = 1001) 6.8 K/UL RBC (test code = 1002) 4.59 M/UL HEMOGLOBIN (test code = 1003) 14.3 G/DL HEMATOCRIT (test code = 1004) 42.7 % MCV (test code = 1005) 93.0 fL MCH (test code = 1006) 31.2 PG MCHC (test code = 1007) 33.5 G/DL RDW (test code = 1038) 12.2 % NEUTROPHILS (test code = 1008) 62.2 % LYMPHOCYTES (test code = 1010) 26.8 % MONOCYTES (test code = 1011) 6.5 % EOSINOPHILS (test code = 1012) 3.7 % BASOPHILS (test code = 1013) 0.7 % IMMATURE GRANULOCYTES (test code = 1036) 0.1 % NUCLEATED RBCS (test code = 1065) 0.0 /100WBC'S PLATELET COUNT (test code = 1015) 215 K/UL ABSOLUTE NEUTROPHILS (test c ode = 1066) 4.20 K/UL ABSOLUTE LYMPHOCYTES (test c ode = 1067) 1.81 K/UL ABSOLUTE MONOCYTES (test cod e = 1068) 0.44 K/UL ABSOLUTE EOSINOPHILS (test c ode = 1040) 0.25 K/UL ABSOLUTE BASOPHILS (test cod e = 1069) 0.05 K/UL ABS IMMATURE GRANULOCYTES (t est code = 1020) 0.01 K/UL ABS NUCLEATED RBCS (test cod e = 38889) 0.00 K/UL Gino IveyHEMOGLOBIN [id number] 00:00:00* Test Item Value Reference Range Interpretation Comme nts HEMOGLOBIN A1c (test code = 17767) 6.1 % Gino BrewsterH, THIRD [id number] 00:00:00* Test Item Value Reference Range Interpretation Comme nts TSH, THIRD GENERATION (test code = 2821) 1.660 UIU/ML Gino Ivey Notes Date/Time Note Provider Source Gino Fair[place] [facility]2024-07-27 00:00:00 Gino Fair[place] [facility]2024-05-25 00:00:00 Gino Tiki [facility]
[2024-06-08 10:46] LABS: Absolute Basophils 0.1 K/uL (0-0.5); Absolute Eosinophils 0.3 K/uL (0-0.5); Absolute Lymphocytes (CBC) 1.7 K/uL (0.7-4.9); Absolute Monocytes 0.5 K/uL (0.1-1.3); Absolute Neutrophil 4.9 K/uL (1.8-8.0); Basophils % 0.8 % (0-1.3); Eosinophils % 4.4 % (0-4.4); Hematocrit 40.8 % (39.6-49.0); Hemoglobin 13.7 g/dL (13.6-17.9); Lymphocytes % 22.6 % (15.3-44.8); MCH 31.1 pg (27.0-35.0); MCHC 33.5 g/dL (32.0-36.0); MCV 92.9 fL (80-100); MPV 8.2 fL (7.6-11.3); Neutrophils % 65.2 % (41.7-73.7); Platelets 203 thou/uL (152-406); RBC Red Blood Cell Count 4.39 M/uL (4.33-5.43); Red Cell Distribution Width 12.6 % (12.1-15.2)
[2024-06-08 10:49] LABS: PT Prothrombin Time 10.7 SECONDS (9.4-12.5); Protime INR 0.95
[2024-06-08] MEDS ORDERED: CLOPIDOGREL 75 MG TABLET ONE (10:52)
[2024-06-08 11:00] LABS: D-Dimer < 0.215 FEUug/mL (0-0.500)
[2024-06-08 11:06] LABS: Anion Gap 9.1 mEq/L (5.0-15.0); Potassium 4.1 mEq/L (3.5-5.1); Troponin High Sensitivity 10.3 pg/mL (<58.9)
--- NOTE | 2024-06-08 11:57 | RAD REPORT ---
EXAMINATION: ONE VIEW CHEST XR CLINICAL INDICATION: CHEST PAIN TECHNIQUE: Frontal chest projection is submitted. Examination is limited by patient positioning and t echnique. COMPARISON: No prior exam. FINDINGS: The lungs are well inflated and clear. The heart is normal in size. No displaced fractures identified . IMPRESSION: No acute intrathoracic abnormalities.
--- NOTE | 2024-06-08 13:10 | ER ---
Nurse's Notes [facility] Name: Adan Dong Age: 58 yrs Sex: Male : 1965 Arrival Date: 06/08/2024 Time: 10:21 Bed 7 Private MD: Diagnosis: Chest pain, unspecified;Subsequent non-ST elevation (NSTEMI) myocardial infarction Presentation: 06/08 10:39 Chief complaint: EMS states: 8/10 left sided chest pain radiating to left arm and hand, tm6 starting about 1 hour ago. Though has had chest pain on and off for 3 days. 324mg aspirin and 1 SL nitro given. Coronavirus screen: Vaccine status: Patient reports receiving the 2nd dose of the covid vaccine. Client denies travel out of the [place] in the last 14 days. Ebola Screen: Patient negative for fever greater than or equal to 101.5 degrees Fahrenheit, and additional compatible Ebola Virus Disease symptoms Patient denies exposure to infectious person. Patient denies travel to an Ebola-affected area in the 21 days before illness onset. No symptoms or risks identified at this time. Initial Sepsis Screen: Does the patient meet any 2 criteria? No. Patient's initial sepsis screen is negative. Does the patient have a suspected source of infection? No. Patient's initial sepsis screen is negative. Risk Assessment: Do you want to hurt yourself or someone else? Patient reports no desire to harm self or others. Onset of symptoms was June 08, 2024 at 09:30. Care prior to arrival: Medication(s) given: ASA, 81 mg, x 4, Nitroglycerin, 0.4 mg SL x 1. 10:39 Method Of Arrival: EMS: [facility] tm6 10:39 Acuity: ROGELIO 3 tm6 Triage Assessment: 10:43 General: Appears in no apparent distress. Behavior is calm, cooperative. Pain: tm6 Complains of pain in chest, left hand and left arm Pain currently is 3 out of 10 on a pain scale. at worst was 8 out of 10 on a pain scale. Quality of pain is described as pounding Pain began 1 hour ago. EENT: No signs and/or symptoms were reported regarding the EENT system. Neuro: Level of Consciousness is awake, alert, obeys commands, Oriented to person, place, time, situation. Cardiovascular: Reports chest pain, Chest pain is described as mild, quality is pounding began 1 hour prior to arrival. Respiratory: Airway is patent Respiratory effort is even, unlabored, Respiratory pattern is regular, symmetrical. GI: No signs and/or symptoms were reported involving the gastrointestinal system. Abdomen is round non-distended. : No signs and/or symptoms were reported regarding the genitourinary system. Derm: No signs and/or symptoms reported regarding the dermatologic system. Musculoskeletal: No signs and/or symptoms reported regarding the musculoskeletal system. Historical: - Allergies: 10:42 No Known Allergies; tm6 - PMHx: 10:42 hyptertension; new onset diabetes; tm6 - PSHx: 10:42 None; tm6 - Immunization history:: Client reports receiving the 2nd dose of the Covid vaccine. - Infectious Disease History:: Denies. - Social history:: Last night awoke to drink some beer per his spouse, Smoking status: Patient denies any tobacco usage or history of. Patient uses alcohol, occasionally. - Family history:: Father and mother are but siblings are alive w/o heart disease. Screenin:45 [facility] ED Fall Risk Assessment (Adult) History of falling in the last 3 months, tm6 including since admission No falls in past 3 months (0 pts) Confusion or Disorientation No (0 pts) Intoxicated or Sedated No (0 pts) Impaired Gait No (0 pts) Mobility Assist Device Used No (0 pt) Altered Elimination No (0 pt) Score/Fall Risk Level 0 - 2 = Low Risk Oriented to surroundings, Maintained a safe environment, Educated pt \T\ family on fall prevention, incl call for assistance when getting out of bed. Abuse screen: Denies threats or abuse. Denies injuries from another. Nutritional screening: No deficits noted. Tuberculosis screening: No symptoms or risk factors identified. Assessment: 10:44 Reassessment: see triage assessment. tm6 11:26 Reassessment: Patient and/or family updated on plan of care and expected duration. Pain tm6 level reassessed. Patient is alert, oriented x 3, equal unlabored respirations, skin warm/dry/pink. 12:57 Reassessment: Patient and/or family updated on plan of care and expected duration. Pain tm6 level reassessed. Patient is alert, oriented x 3, equal unlabored respirations, skin warm/dry/pink. 13:37 Reassessment: Patient and/or family updated on plan of care and expected duration. Pain tm6 level reassessed. Patient is alert, oriented x 3, equal unlabored respirations, skin warm/dry/pink. 14:27 Reassessment: report sent to 4th floor. tm6 Vital Signs: 10:39 BP 122 / 77; Pulse 63; Resp 17; Temp 97.8(TE); Pulse Ox 99% on R/A; MAP 91 mmHg; Weight tm6 83.46 kg; Height 5 ft. 5 in. ; Pain 3/10; 11:27 BP 134 / 84; Pulse 69; Resp 13; Pulse Ox 97% on R/A; MAP 97 mmHg; Pain 2/10; tm6 12:56 BP 146 / 90; Pulse 81; Pulse Ox 98% on R/A; MAP 106 mmHg; Pain 2/10; tm6 13:37 BP 143 / 89; Pulse 93; Resp 20; Pulse Ox 96% on R/A; MAP 103 mmHg; tm6 15:02 BP 127 / 93; Pulse 85; Resp 16; Temp 97.8; Pulse Ox 97% on R/A; MAP 103 mmHg; Pain 0/10;ph 10:39 Body Mass Index 30.62 (83.46 kg, 165.1 cm) tm6 10:39 Pain Scale: Adult tm6 11:27 Pain Scale: Adult tm6 12:56 Pain Scale: Adult tm6 15:02 Pain Scale: Adult ph ED Course: 10:25 Patient arrived in ED. eb 10:26 Jermain Landaverde MD is Attending Physician. bo1 10:31 EKG done, by ED staff, reviewed by Jermain Landaverde MD. em1 10:39 Toni Hugo RN is Primary Nurse. tm6 10:39 Basic Metabolic Panel Sent. tm6 10:39 CBC with Diff Sent. tm6 10:39 D-Dimer Sent. tm6 10:39 PT-INR Sent. tm6 10:39 Troponin HS Sent. tm6 10:42 Triage completed. tm6 10:43 Arm band placed on right wrist. tm6 10:45 Maintain EMS IV. Dressing intact. Good blood return noted. Site clean \T\ dry. Gauge \T\ tm 6 site: 20g RAC. Flushed with 10 mL NS. 10:45 Patient has correct armband on for positive identification. Bed in low position. Call tm6 light in reach. Side rails up X2. Provided Education on: use of call hurtado. Client placed on continuous cardiac and pulse oximetry monitoring. NIBP monitoring applied. monitor car operator on. Pulse ox on. NIBP on. Door closed. Noise minimized. 11:26 EKG done, by ED staff, reviewed by Jermain Landaverde MD. tm6 11:48 XRAY Chest (1 view) In Process Unspecified. EDMS 12:25 Troponin HS Sent. tm6 13:08 Herberth Calabrese MD is Hospitalizing Provider. bo1 15:03 No provider procedures requiring assistance completed. Patient admitted, IV remains in tm6 place. Administered Medications: 10:54 Drug: Clopidogrel PO 300 mg PO once Route: PO; tm6 13:14 Follow up: Response: No adverse reaction tm6 13:14 Drug: Enoxaparin Sub-Q 80 mg Sub-Q once Route: Sub-Q; Site: right lower abdomen; tm6 13:38 Follow up: Response: No adverse reaction tm6 Medication: 10:45 VIS not applicable for this client. tm6 Outcome: 13:09 Decision to Hospitalize by Provider. bo1 15:03 Admitted to Med/surg accompanied by nurse, via wheelchair, room 431, with chart, tm6 15:03 Condition: stable 15:03 Instructed on the need for admit, 15:03 Patient left the ED. tm6 Signatures: Dispatcher [employer] Car [place] em1 Carrie Barfield RN RN Catie Kaiser Tawney, RN RN tm6 Akhil, MD JAIR Aly bo1
--- NOTE | 2024-06-08 13:10 | EDPHYS ---
Physician Documentation [facility] Name: Adan Dong Age: 58 yrs Sex: Male : 1965 Arrival Date: 06/08/2024 Time: 10:21 Bed 7 Private MD: ED Physician Jermain Landaverde HPI: 06/08 10:52 This 58 yrs old Male presents to ER via EMS with complaints of Chest Pain. bo1 10:52 The patient or guardian reports chest pain that is located primarily in the anterior bo1 aspect of left upper chest. Onset: just prior to arrival, this morning, 1 hour(s) ago. Pt was on a riding mower and started with left CP radiating to the left arm. 911 was called. The pain radiates to the left arm. Onset: The symptoms/episode began/occurred suddenly, just prior to arrival. Associated signs and symptoms: Pertinent negatives: diaphoresis, shortness of breath. The chest pain is described as a pressure, Like a "punch". Duration: The patient or guardian reports a single episode, that is now resolved, After EMS gave "nitro.". EMS care prior to arrival includes: aspirin, nitroglycerin, x 1, with resolution of the chest pain. Historical: - Allergies: 10:42 No Known Allergies; tm6 - PMHx: 10:42 hyptertension; new onset diabetes; tm6 - PSHx: 10:42 None; tm6 - Immunization history:: Client reports receiving the 2nd dose of the Covid vaccine. - Infectious Disease History:: Denies. - Social history:: Last night awoke to drink some beer per his spouse, Smoking status: Patient denies any tobacco usage or history of. Patient uses alcohol, occasionally. - Family history:: Father and mother are but siblings are alive w/o heart disease. 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 bo1 11:30 ECG was reviewed by the Attending Physician. bo1 11:32 Constitutional: This is a well developed, well nourished patient who is awake, alert, bo1 and in no acute distress. 11:32 Head/face: Exam is negative for acute changes, 11:32 Neck: Exam negative for acute changes, masses, swelling, 11:32 Chest/axilla: Inspection: normal, no acute changes, Palpation: no acute changes, 11:32 Cardiovascular: Rate: normal, Rhythm: regular, Pulses: no pulse deficits are appreciated, Heart sounds: normal, 11:32 Respiratory: Exam negative for acute changes, the patient does not display signs of respiratory distress, Respirations: normal, Breath sounds: are clear throughout, Respiratory rate: Normal rate 11:32 Abdomen/GI: Exam negative for acute changes, Bowel sounds: normal, Palpation: abdomen is soft and non-tender, 11:32 Musculoskeletal/extremity: Extremities: all appear grossly normal, with no appreciated pain with palpation, no acute changes, Calves: are non-tender, 11:32 Skin: no rash present. Normal temp/no diaphoresis. Vital Signs: 10:39 BP 122 / 77; Pulse 63; Resp 17; Temp 97.8(TE); Pulse Ox 99% on R/A; MAP 91 mmHg; Weight tm6 83.46 kg; Height 5 ft. 5 in. ; Pain 3/10; 11:27 BP 134 / 84; Pulse 69; Resp 13; Pulse Ox 97% on R/A; MAP 97 mmHg; Pain 2/10; tm6 12:56 BP 146 / 90; Pulse 81; Pulse Ox 98% on R/A; MAP 106 mmHg; Pain 2/10; tm6 13:37 BP 143 / 89; Pulse 93; Resp 20; Pulse Ox 96% on R/A; MAP 103 mmHg; tm6 15:02 BP 127 / 93; Pulse 85; Resp 16; Temp 97.8; Pulse Ox 97% on R/A; MAP 103 mmHg; Pain 0/10;ph 10:39 Body Mass Index 30.62 (83.46 kg, 165.1 cm) tm6 10:39 Pain Scale: Adult tm6 11:27 Pain Scale: Adult tm6 12:56 Pain Scale: Adult tm6 15:02 Pain Scale: Adult ph MDM: 10:26 Medical Screening Exam initiated bo1 11:31 Differential diagnosis: coronary artery disease chest wall pain, Non cardiac causes. bo1 11:32 Data reviewed: vital signs, lab test result(s), EKG, radiologic studies, plain films. bo1 11:34 Differential Diagnosis Angina, non exertional type, atypical CP. bo1 12:23 Management of patient was discussed with the following: Pt, spouse and multiple family bo1 members. All are in agreement for OP trial and F/U with cardiology. Pt to return if symptomatic. ED course: No further CP episodes and w/u is essentially normal w/o elevation of serial troponin or EKG changes. 13:05 Data reviewed: lab test result(s), cardiac enzymes, troponin i, 2nd troponin I has bo1 bumped from 10.7 to 37. Management of patient was discussed with the following: Hospitalist: Timoteo. Employment Clerk: Cardiology - Dr Susy ADAM. ED course: Family and pt updated on the change in the troponin I and that pt should be admitted for obs to tele and be seen by cardiology. 06/08 10:26 Order name: Basic Metabolic Panel; Complete Time: 11:21 06/08 10:26 Order name: CBC with Diff; Complete Time: 11:21 06/08 10:26 Order name: D-Dimer; Complete Time: 11:21 06/08 10:26 Order name: PT-INR; Complete Time: 11:21 06/08 10:26 Order name: Troponin HS; Complete Time: 11:21 06/08 12:19 Order name: Troponin HS; Complete Time: 12:53 06/08 10:26 Order name: XRAY Chest (1 view); Complete Time: 11:58 06/08 10:26 Order name: Cardiac monitoring; Complete Time: 10:31 06/08 10:26 Order name: EKG - Nurse/Tech; Complete Time: 10:31 06/08 10:26 Order name: IV Saline Lock; Complete Time: 10:39 06/08 10:26 Order name: Labs collected and sent; Complete Time: 10:39 06/08 10:26 Order name: O2 Per Protocol; Complete Time: 10:39 bo1 10/27 10:26 Order name: O2 Sat Monitoring; Complete Time: 10:39 bo1 06/08 10:59 Order name: EKG - Nurse/Tech; Complete Time: 11:27 bo1 EC:47 Rate is 63 beats/min. Rhythm is regular. QRS [place] is Normal. [place] interval is normal. QRS bo1 interval is normal. QT interval is normal. No Q waves. T waves are Normal. No ST changes noted. Clinical impression: Normal ECG. Interpreted by me. Reviewed by me. 11:30 Rate is 63 beats/min. Rhythm is regular. QRS [place] is Normal. [place] interval is normal. QRS bo1 interval is normal. QT interval is normal. No Q waves. T waves are Normal. No ST changes noted. Clinical impression: Normal ECG. Interpreted by me. Reviewed by me. Administered Medications: 10:54 Drug: Clopidogrel PO 300 mg PO once Route: PO; tm6 13:14 Follow up: Response: No adverse reaction tm6 13:14 Drug: Enoxaparin Sub-Q 80 mg Sub-Q once Route: Sub-Q; Site: right lower abdomen; tm6 13:38 Follow up: Response: No adverse reaction tm6 Disposition Summary: 06/08/24 13:09 Hospitalization Ordered Notes: Hospitalization Status: Observation bo1 Provider: Herberth Calabrese bo1 Location: Telemetry/MedSurg (observation) bo1 Condition: Stable bo1 Problem: new bo1 Symptoms: are unchanged bo1 Bed/Room Type: Standard 1 Room Assignment: 408(06/08/24 14:25) eb Diagnosis - Chest pain, unspecified bo1 - Subsequent non-ST elevation (NSTEMI) myocardial infarction bo1 Forms: - Medication Reconciliation Form bo1 - SBAR form bo1 - Leadership Thank You Letter bo1 Signatures: Dispatcher [employer] EDMS Catie Kaiser Tawney, RN RN tm6 Jermain Landaverde MD MD bo1 Corrections: (The following items were deleted from the chart) 10:27 10:27 BASIC METABOLIC PANEL+C.LAB.BRZ ordered. EDMS EDMS 10:27 10:27 CBC+H.LAB.BRZ ordered. EDMS EDMS 10:27 10:27 D-DIMER+COAG.LAB.BRZ ordered. EDMS EDMS 10:27 10:27 PROTIME (+INR)+COAG.LAB.BRZ ordered. EDMS EDMS 10: 10:27 Troponin High Sensitivity+C.LAB.BRZ ordered. EDMS EDMS 10: 10:27 Chest Single View+RAD.RAD.BRZ ordered. EDMS EDMS 13:58 13:09 bo1 eb 14:16 13:58 218 eb eb 14:25 14:16 405 eb eb
[2024-06-08] MEDS ORDERED: ENOXAPARIN 80 MG/0.8 ML SQ ONE (13:11)
--- NOTE | 2024-06-08 14:27 | P.CNS ---
Date of Consult: 06/08/24 Chief Complaint: chest pain History of Present Illness: Patient with PMH of HTN, DM, presented with sudden onset left sided chest pain, radiated to his arm lasted for 1 hour, denies any other cardiac symptoms. Allergies No Known Allergies Allergy (Verified 06/03/22 03:39) Home medications list reviewed: Yes Home Medications: Lisinopril/Hydrochlorothiazide [Lisinopril-Hctz 10-12.5 mg Tab] 1 tab PO DAILY 06/02/22 Nystatin 06/02/22 Alcohol Antiseptic Pads [Alcohol Swabs] 1 each TP TID #100 pad 06/03/22 Blood Sugar Diagnostic, Disc [Breeze 2] 1 each MC TID #30 strip 06/03/22 Blood-Glucose Meter [Blood Glucose Monitoring] 1 each MC TID #1 kit 06/03/22 Insulin Glargine,Hum.rec.anlog [Lantus Solostar] 30 unit SQ DAILY #15 ml 06/03/22 Pen Needle, Diabetic [Insulin Pen Needle] 1 dis.ndl MC TID #100 dis.ndl 06/03/22 - Past Medical/Surgical History Diabetic: Yes -: Hypertension -: Type 2 Diabetes Psychosocial/ Personal History: Patient is . - Family History Father Medical History: Hypertension, Diabetes - Social History Alcohol use: Yes CD- Drugs: No Caffeine use: Yes Review of Systems 10-point ROS is otherwise unremarkable Physical Examination General: Alert, In no apparent distress HEENT: Atraumatic, PERRLA, Mucous membr. moist/pink, EOMI, Sclerae nonicteric Neck: Supple, 2+ carotid pulse no bruit, No LAD, Without JVD or thyroid abnormality Respiratory: Clear to auscultation bilaterally, Normal air movement Cardiovascular: Regular rate/rhythm, Normal S1 S2 Gastrointestinal: Normal bowel sounds, No tenderness Musculoskeletal: No tenderness Integumentary: No rashes Neurological: Normal gait, Normal speech, Normal tone, Normal affect Lymphatics: No axilla or inguinal lymphadenopathy Laboratory Data (last 24 hrs) 06/08/24 06/08/24 06/08/24 10:36 10:36 10:36 WBC 7.50 Hgb 13.7 Hct 40.8 Plt Count 203 PT 10.7 INR 0.95 Sodium 132 L Potassium 4.1 BUN 20 H Creatinine 1.38 H Glucose 109 H - Problems (1) Chest pain Current Visit: Yes Status: Acute Plan: concern for unstable angina with multiple risk factors. NPO for coronary angiogram in am ASA 81 mg daily Lovenox Lipitor 40 mg daily get Echo (2) Hypertension Current Visit: No Status: Chronic Plan: reconcille and resume patient home medications. Qualifiers:
--- NOTE | 2024-06-08 14:45 | P.HP ---
Certification for Inpatient Patient admitted to: Observation With expected LOS: <2 Midnights Patient will require the following post-hospital care: None Practitioner: I am a practitioner with admitting privileges, knowledge of patient current condition, hospital course, and medical plan of care. Services: Services provided to patient in accordance with Admission requirements found in Title 42 Section 412.3 of the Code of Federal Regulations Patient History Date of Service: 06/08/24 Reason for admission: chest pain History of Present Illness: 58-year-old male with history of [id number] diabetes, hypertension presents the emergency department with chief complaint of chest pain, left-sided with numbness radiating to the left arm that lasted approximately 1 hour while out mowing his yard. He was evaluated in the emergency department initial high sensitive troponin was 10.3, repeat troponin was 37.4 EKG without STEMI criteria chest x-ray negative for acute findings. ED provider wishes to be patient under observation for ACS rule out. Allergies No Known Allergies Allergy (Verified 06/03/22 03:39) Home Medications: Lisinopril/Hydrochlorothiazide [Lisinopril-Hctz 10-12.5 mg Tab] 1 tab PO DAILY 06/02/22 Nystatin 06/02/22 Alcohol Antiseptic Pads [Alcohol Swabs] 1 each TP TID #100 pad 06/03/22 Blood Sugar Diagnostic, Disc [Breeze 2] 1 each MC TID #30 strip 06/03/22 Blood-Glucose Meter [Blood Glucose Monitoring] 1 each MC TID #1 kit 06/03/22 Insulin Glargine,Hum.rec.anlog [Lantus Solostar] 30 unit SQ DAILY #15 ml 06/03/22 Pen Needle, Diabetic [Insulin Pen Needle] 1 dis.ndl MC TID #100 dis.ndl 06/03/22 - Past Medical/Surgical History Diabetic: Yes -: Hypertension -: Type 2 Diabetes Psychosocial/ Personal History: Patient is . - Family History Father -: Hypertension, Diabetes - Social History Alcohol use: Yes CD- Drugs: No Caffeine use: Yes Place of Residence: Home Review of Systems 10-point ROS is otherwise unremarkable Cardiovascular: Chest Pain Physical Examination - Physical Exam General: Alert, In no apparent distress, Oriented x3 HEENT: Atraumatic, PERRLA, Mucous membr. moist/pink Neck: Supple, 2+ carotid pulse no bruit, No LAD Respiratory: Clear to auscultation bilaterally, Normal air movement Cardiovascular: Regular rate/rhythm, Normal S1 S2 Gastrointestinal: Normal bowel sounds, No tenderness Musculoskeletal: No tenderness Integumentary: No rashes Neurological: Normal gait, Normal speech, Normal strength at 5/5 x4 extr, Normal tone, Normal affect - Studies Laboratory Data (last 24 hrs) 06/08/24 06/08/24 06/08/24 10:36 10:36 10:36 WBC 7.50 Hgb 13.7 Hct 40.8 Plt Count 203 PT 10.7 INR 0.95 Sodium 132 L Potassium 4.1 BUN 20 H Creatinine 1.38 H Glucose 109 H Assessment and Plan - Plan Assessment: Chest pain/unstable angina Hypertension Diabetes mellitus type [id number] Plan: Chest pain/unstable angina Aspirin, statin, therapeutic Lovenox Monitor on telemetry and trend troponin Cardiology evaluated, recommends coronary angiogram in a.m. Hypertension Continue home medications when verified Diabetes mellitus type [id number] Sliding scale insulin DVT PPX: Therapeutic Lovenox Code status: Full Discharge Plan: Home Plan to discharge in: 24 Hours - Advance Directives Does patient have a Living Will: No Does patient have a Durable POA for Healthcare: No - Code Status/Comfort Care Code Status Assessed: Yes (Full code) Critical Care: No Time Spent Managing Pts Care (In Minutes): 57
[2024-06-08] MEDS ORDERED: D10W 125 ML IV PRN (15:02)
[2024-06-08] MEDS ORDERED: GLUCAGON 1 MG/VIAL IM PRN (15:02)
[2024-06-08 15:46] VITALS: BMI 29.7
[2024-06-08] MEDS: INSULIN REGULAR (HUMAN) 100 UNIT/ML SQ SCH (16:17)
[2024-06-08] MEDS: NA CHLORIDE 0.9% 1,000 ML IV SCH (16:19)
[2024-06-08] MEDS: ATORVASTATIN 40 MG TAB PO SCH (20:41)
[2024-06-08] MEDS: ENOXAPARIN 80 MG/0.8 ML SQ SCH (20:41)
[2024-06-09 05:52] LABS: Absolute Eosinophils 0.2 K/uL (0-0.5); Absolute Lymphocytes (CBC) 1.9 K/uL (0.7-4.9); Absolute Monocytes 0.6 K/uL (0.1-1.3); Absolute Neutrophil 5.2 K/uL (1.8-8.0); Basophils % 0.5 % (0-1.3); Eosinophils % 2.6 % (0-4.4); Hematocrit 40.9 % (39.6-49.0); Lymphocytes % 24.3 % (15.3-44.8); MCH 31.6 pg (27.0-35.0); MCHC 34.2 g/dL (32.0-36.0); MCV 92.3 fL (80-100); Monocytes % 7.8 % (3.3-12.3); Neutrophils % 64.8 % (41.7-73.7); Nucleated Red Blood Cells % 0.1 % (0-0); Platelets 212 thou/uL (152-406); RBC Red Blood Cell Count 4.43 M/uL (4.33-5.43); Red Cell Distribution Width 12.5 % (12.1-15.2)
[2024-06-09 06:09] LABS: Anion Gap 5.7 mEq/L (5.0-15.0); Potassium 4.7 mEq/L (3.5-5.1)
[2024-06-09] MEDS ORDERED: HEPA 1000U/500MLS 2,000 UNIT/1,000 ML BAG IV ONE (07:35)
[2024-06-09] MEDS ORDERED: NITROGLYCERIN/D5W 50 MG/250 ML BTL IV ONE (07:35)
[2024-06-09] MEDS ORDERED: LIDOCAINE 1% 20 ML MDV ONE (07:35)
[2024-06-09] MEDS ORDERED: HEPARIN 10,000 UNIT/10 ML VIAL IV ONE (07:35)
[2024-06-09] MEDS ORDERED: ATROPINE SULF 1 MG/10 ML SYR IV ONE (07:35)
[2024-06-09] MEDS ORDERED: ASPIRIN 325 MG TAB ONE (07:36)
[2024-06-09] MEDS ORDERED: CLOPIDOGREL 75 MG TABLET ONE (07:36)
[2024-06-09] MEDS ORDERED: HEPARIN 5000 UNIT/ML 1 ML VIAL ONE (07:36)
[2024-06-09] MEDS ORDERED: TICAGRELOR 90 MG TABLET PO ONE (07:36)
[2024-06-09] MEDS ORDERED: FENTANYL CITR 100 MCG/2 ML ONE (07:48)
[2024-06-09] MEDS ORDERED: MIDAZOLAM HCL 2 MG/2 ML INJ ONE (07:48)
[2024-06-09] MEDS: ASPIRIN EC 81 MG TAB PO SCH (09:00)
--- NOTE | 2024-06-09 09:32 | P.PN ---
Subjective Date of Service: 06/09/24 Chief Complaint: chest pain Subjective: No new changes, No C/O voiced, Tolerating diet, Ambulating, Improving Review of Systems 10-point ROS is otherwise unremarkable Physical Examination - Vital Signs Temperature: 97.8 F Blood Pressure: 132/71 Pulse: 63 Respirations: 16 Pulse Ox (%): 96 - Physical Exam General: Alert, In no apparent distress HEENT: Atraumatic, PERRLA, EOMI Neck: Supple, JVD not distended Respiratory: Clear to auscultation bilaterally, Normal air movement Cardiovascular: Regular rate/rhythm, Normal S1 S2 Gastrointestinal: Normal bowel sounds, No tenderness Musculoskeletal: No tenderness Integumentary: No rashes Neurological: Normal speech, Normal tone, Normal affect Lymphatics: No axilla or inguinal lymphadenopathy - Studies Laboratory Data (last 24 hrs) 06/08/24 06/08/24 06/08/24 10:36 10:36 10:36 WBC 7.50 Hgb 13.7 Hct 40.8 Plt Count 203 PT 10.7 INR 0.95 Sodium 132 L Potassium 4.1 BUN 20 H Creatinine 1.38 H Glucose 109 H Medications List Reviewed: Yes Assessment And Plan - Current Problems (Diagnosis) (1) Chest pain Current Visit: Yes Status: Acute Plan: Coronary angiogram done today and patient is s/p PCI of LAD and LPDA ASA 81 mg daily Brilinta 90 mg po BID Lipitor 40 mg daily get Echo (2) Hypertension Current Visit: No Status: Chronic Plan: Coreg 3.125 mg po BID Resume home medications Qualifiers: (3) HLD (hyperlipidemia) Current Visit: Yes Status: Acute Plan: Lipitor 40 mg daily repeat lipid panel in 8 weeks.
--- NOTE | 2024-06-09 12:16 | OP ---
Date of Procedure: 06/09/2024 Surgeon: Alex Jain Procedures Performed: 1.Left heart catheterization. 2.Selective coronary angiogram. 3.Percutaneous coronary intervention of the left anterior descending with Synergy 3.0 x 28 mm drug-e luting stent. 4.Percutaneous coronary intervention of the left posterior descending artery with Synergy 3.0 x 20 m m drug-eluting stent. Indication For Procedure: Unstable angina. Complications: None. Estimated Blood Loss: Less than 50 cc. Access: Right radial, closed by TR band. Sedation Time: 40 minutes with 1 of Versed and 25 fentanyl. Description Of Procedure: After risks, benefits, and alternatives were explained to the patient, the patient agreed to proceed with the procedure and signed informed consent. The patient was brought b ack to the slab stripper, prepped and draped in sterile fashion. Time-out was performed. Sedation was ad ministered. Next, right radial access was obtained. Fowler 4 catheter was advanced over J-wire to th e LV cavity. LVEDP was obtained. Pullback did not show any gradient. Same catheter was used for se lective angiogram of the left and right coronary systems. That catheter was later exchanged over a J -wire with an EBU 3.0 mm guide. Heparin was administered. ACT was therapeutic. Runthrough wire was advanced into the left PDA, pre-dilated the lesions with an NC 2.5 mm balloon. Next, Synergy 3.0 x 20 mm drug-eluting stent was placed across the lesion. Angiogram showed BAILEY-3 flow. That wire was later redirected to the LAD. I pre-dilated the proximal to mid LAD lesions with an NC 2.5 mm balloon . Next, Synergy 3.0 x 28 mm drug-eluting stent was placed across the lesion, that was postdilated wi th a 3.25 mm NC balloon. Final angiogram shows BAILEY-3 flow. Wires were removed. Catheter was remov ed over a J-wire. Sheath was removed. TR band was applied. Hemostasis was achieved. The patient w as moved back to recovery in a stable condition. Findings: 1.Left main: Normal. 2.LAD: Diffuse atherosclerosis with a proximal to mid 70% disease, status post PCI with Synergy 3.0 x 28 mm drug-eluting stent, then followed by multiple mid to distal 30% to 40% disease. 3.Left circumflex, large, dominant, proximal 40% disease, then the left PDA got 80% disease, status post PCI with Synergy 3.0 x 20 mm drug-eluting stent. 4.RCA, small, nondominant with mid 40% to 50% disease. Assessment: 1.Significant proximal to mid left anterior descending disease, status post percutaneous coronary in tervention with 3.0 x 28 mm drug-eluting stent. 2.Significant left posterior descending artery disease, status post percutaneous coronary interventi on with Synergy 3.0 x 20 mm drug-eluting stent. Plan: 1.Continue aspirin 81 mg daily for life. 2.Continue Brilinta 90 mg p.o. b.i.d. for 12 months. 3.Continue aggressive medical treatment for CAD. KELSEY Voice ID: [id number] Report ID: [id number]
--- NOTE | 2024-06-09 12:36 | EKG ---
Test Date: 2024-06-08 Test Time: 11:24:52 Crystal Report Developer: MARIANELA MEASUREMENT RESULTS: Intervals: Rate: 63 [place]: 128 QRSD: 74 QT: 410 QTc: 419 [place]: P: 26 [place]: 128 QRS: 1 T: 38 INTERPRETIVE STATEMENTS: Normal sinus rhythm Normal ECG Compared to ECG 06/08/2024 10:28:06 No significant changes Electronically Signed On 06-09-24 12:35:49 CDT by Alex Jain
--- NOTE | 2024-06-09 12:36 | EKG ---
Test Date: 2024-06-08 Test Time: 10:28:06 Director Of Social Work: JANETTE MEASUREMENT RESULTS: Intervals: Rate: 63 FL: 134 QRSD: 76 QT: 418 QTc: 427 [place]: P: 38 FL: 134 QRS: -3 T: 38 INTERPRETIVE STATEMENTS: Normal sinus rhythm Normal ECG Compared to ECG 06/01/2022 20:31:06 T-wave abnormality no longer present Electronically Signed On 06-09-24 12:35:52 CDT by Alex Jain
--- NOTE | 2024-06-09 14:31 | P.PN ---
Date of Service: 06/09/24 Subjective: Doing well this morning S/P C with PCI x2 ROS: 10 point ROS as noted above, otherwise negative Physical exam GEN: Alert, oriented, NAD HEENT: Normal conjunctiva, sclera anicteric CV: Regular rate and rhythm, no edema Pulm: Nonlabored respirations on room air ABD: Soft, nontender, nondistended MSK: No joint tenderness Integumentary: No rashes Neuro: Normal speech, normal affect Vitals reviewed Assessment: Chest pain/unstable angina Hypertension Diabetes mellitus type [id number] Plan: Chest pain/unstable angina Coronary angiogram performed today with PCI x 2 Continue aspirin, statin, Brilinta Started on Coreg 3.125 twice daily 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
[2024-06-09] MEDS: carvediloL 3.125 MG TAB PO SCH (19:36)
[2024-06-09] MEDS ORDERED: TICAGRELOR 90 MG TABLET PO SCH (20:00)
[2024-06-09] MEDS: TICAGRELOR 90 MG TABLET PO SCH (20:50)
[2024-06-10 04:09] VITALS: O2SAT 96
[2024-06-10 06:27] LABS: Absolute Eosinophils 0.3 K/uL (0-0.5); Absolute Lymphocytes (CBC) 1.8 K/uL (0.7-4.9); Absolute Monocytes 0.7 K/uL (0.1-1.3); Absolute Neutrophil 5.8 K/uL (1.8-8.0); Basophils % 0.4 % (0-1.3); Eosinophils % 3.1 % (0-4.4); Hematocrit 40.4 % (39.6-49.0); Hemoglobin 13.4 g/dL (13.6-17.9); Lymphocytes % 20.6 % (15.3-44.8); MCH 31.3 pg (27.0-35.0); MCHC 33.2 g/dL (32.0-36.0); MCV 94.2 fL (80-100); MPV 8.3 fL (7.6-11.3); Monocytes % 8.5 % (3.3-12.3); Neutrophils % 67.4 % (41.7-73.7); Platelets 217 thou/uL (152-406); RBC Red Blood Cell Count 4.29 M/uL (4.33-5.43); Red Cell Distribution Width 13.1 % (12.1-15.2)
--- NOTE | 2024-06-10 06:43 | ECHO ---
HEIGHT: 5 ft 6 in WEIGHT: 183 lb 15.965 oz DATE OF STUDY: 06/09/[address]: Timoteo White NP 2-DIMENSIONAL: YES M.MODE: YES DOPPLER: YES COLOR FLOW: YES TDS: PORTABLE: YES DEFINITY: BUBBLE STUDY: DIAGNOSIS: CHEST PAIN CARDIAC HISTORY: CATHERIZATION: YES SURGERY: NO PROSTHETIC VALVE: NO PACEMAKER: NO MEASUREMENTS (cm) DIASTOLIC (NORMALS) SYSTOLIC (NORMALS) IVSd 1.2 (0.6-1.2) LA Diam 2.6 (1.9-4.0) LVEF 60-65% LVIDd 4.0 (3.5-5.7) LVIDs 2.5 (2.0-3.5) %FS 38% LVPWd 1.2 (0.6-1.2) Ao Diam 2.5 (2.0-3.7) 2 DIMENSIONAL ASSESSMENT: RIGHT ATRIUM: NORMAL LEFT ATRIUM: NORMAL RIGHT VENTRICLE: NORMAL LEFT VENTRICLE: NORMAL TRICUSPID VALVE: NORMAL MITRAL VALVE: NORMAL PULMONIC VALVE: NORMAL AORTIC VALVE: NORMAL PERICARDIAL EFFUSION: NONE AORTIC ROOT: NORMAL LEFT VENTRICULAR WALL MOTION: NORMAL DOPPLER/COLOR FLOW: NORMAL COMMENTS: 1. NORMAL LEFT SYSTOLIC FUNCTION, EJECTION FRACTION 60-65%, NORMAL WALL MOTION 2. NORMAL DIASTOLIC FUCNTION TECHNOLOGIST: SOURAV STALLWORTH
[2024-06-10 06:46] LABS: Anion Gap 6.4 mEq/L (5.0-15.0); Potassium 4.4 mEq/L (3.5-5.1)
[2024-06-10 08:23] VITALS: BP 130/83; TEMP 98
[2024-06-10] MEDS: FLU (Fluarix Triv) TS24-25(6MOS UP)/PF 45 MCG/0.5 ML Syringe IM ONE ×2 (09:30→09:37)
[2024-06-10] MEDS: PNEUMOCOCCAL VACCINE 0.5 ML IMVAC ONE ×2 (09:38→09:47)
--- NOTE | 2024-06-10 15:07 | P.DS ---
Admission Date: 06/09/24 Discharge Date: 06/10/24 Disposition: ROUTINE DISCHARGE Discharge Condition: GOOD Reason for Admission: chest pain Brief History of Present Illness: 58-year-old male with history of rwj-lxyrptq-ulrythyru diabetes, hypertension presents the emergency department with chief complaint of chest pain, left-sided with numbness radiating to the left arm that lasted approximately 1 hour while out mowing his yard. He was evaluated in the emergency department initial high sensitive troponin was 10.3, repeat troponin was 37.4 EKG without STEMI criteria chest x-ray negative for acute findings. ED provider wishes to be patient under observation for ACS rule out. Hospital Course: Assessment: Chest pain/unstable angina Hypertension Diabetes mellitus type [id number] Patient was admitted to the hospital for chest pain, there was concern for unstable angina and coronary angiogram was performed on 06/09. He had PCI of LAD and LPDA. He has done well postoperatively overnight, no further episodes of chest pain and is stable for discharge/follow-up at this time. Continue your cholesterol medicine atorvastatin You will need to take aspirin 81 [id number]-dgl-ezcxixj daily for the rest of your life Continue Brilinta 90 mg by mouth twice daily for at least 1 year, prescription sent to your pharmacy Cardiology also recommend starting Coreg 3.125 mg by mouth twice daily which has been sent to your pharmacy Please follow-up with your primary care doctor and cardiologyDrImtiaz Jain in 1 to 2 weeks. Vital Signs/Physical Exam: Temp Pulse Resp BP Pulse Ox 98.0 F 66 15 130/83 92 06/10/24 08:00 06/10/24 08:00 06/10/24 08:00 06/10/24 08:00 06/10/24 08:00 General: Alert, In no apparent distress, Oriented x3 HEENT: Atraumatic, PERRLA, EOMI Neck: Supple, JVD not distended Respiratory: Clear to auscultation bilaterally, Normal air movement Cardiovascular: Regular rate/rhythm, Normal S1 S2 Gastrointestinal: Normal bowel sounds, No tenderness Musculoskeletal: No tenderness Integumentary: No rashes Neurological: Normal speech, Normal affect Laboratory Data at Discharge: WBC 8.60 thou/uL (4.3-10.9) 06/10/24 06:01 Hgb 13.4 g/dL (13.6-17.9) L 06/10/24 06:01 Hct 40.4 % (39.6-49.0) 06/10/24 06:01 Plt Count 217 thou/uL (152-406) 06/10/24 06:01 PT 10.7 SECONDS (9.4-12.5) 06/08/24 10:36 INR 0.95 06/08/24 10:36 Sodium 137 mEq/L (136-145) 06/10/24 06:01 Potassium 4.4 mEq/L (3.5-5.1) 06/10/24 06:01 BUN 18 mg/dL (7-18) 06/10/24 06:01 Creatinine 1.48 mg/dL (0.70-1.30) H 06/10/24 06:01 Glucose 117 mg/dL (74-106) H 06/10/24 06:01 Triglycerides 173 mg/dL (<150) H 06/09/24 05:33 Cholesterol 140 mg/dL (<200) 06/09/24 05:33 HDL Cholesterol 41 mg/dL (40-60) 06/09/24 05:33 Cholesterol/HDL Ratio 3.41 06/09/24 05:33 Home Medications: Lisinopril/Hydrochlorothiazide [Lisinopril-Hctz 10-12.5 mg Tab] 1 tab PO DAILY 06/02/22 Atorvastatin Calcium 20 mg PO DAILY 06/08/24 Metformin ER [Glucophage ER*] 500 mg PO DAILY 06/08/24 Ticagrelor [Brilinta*] 90 mg PO BID #60 tab 06/10/24 carvediloL [Coreg*] 3.125 mg PO BID 6AM 6PM #60 tab 06/10/24 New Medications: Ticagrelor [Brilinta*] 90 mg PO BID #60 tab carvediloL [Coreg*] 3.125 mg PO BID 6AM 6PM #60 tab Physician Discharge Instructions: Patient was admitted to the hospital for chest pain, there was concern for unstable angina and coronary angiogram was performed on 06/09. He had PCI of LAD and LPDA. He has done well postoperatively overnight, no further episodes of chest pain and is stable for discharge/follow-up at this time. Continue your cholesterol medicine atorvastatin You will need to take aspirin 81 [id number]-[id number] daily for the rest of your life Continue Brilinta 90 mg by mouth twice daily for at least 1 year, prescription sent to your pharmacy Cardiology also recommend starting Coreg 3.125 mg by mouth twice daily which has been sent to your pharmacy Please follow-up with your primary care doctor and cardiologyDr. Susy in 1 to 2 weeks. Diet: AHA Activity: Ad kaveh Followup: Alex Jain MD [ACTIVE - CAN ADMIT] - 1-2 Weeks NONE,NONE [Primary Care Provider] - 1 Week Time spent managing pt's care (in minutes): 47
== END 2024-06-10 10:35 | disposition home or self-care (01) | DRG 322 ==
LOC: ER 10:21 → ERHOLD 13:39 → 4TH 14:33 → OBSVTOIN 06-09 14:26
PROVIDERS: ADMIT Internal Medicine Sleep Medicine; ATTEND Internal Medicine
PROC: 027135Z Dilation of Coronary Artery, Two Arteries with Two Drug-eluting Intraluminal Devices, Percutaneous Approach (ICD-10-PCS; principal; 2024-06-09)
PROC: 4A023N7 Measurement of Cardiac Sampling and Pressure, Left Heart, Percutaneous Approach (ICD-10-PCS; 2024-06-09)
PROC: B2111ZZ Fluoroscopy of Multiple Coronary Arteries using Low Osmolar Contrast (ICD-10-PCS; 2024-06-09)
DX: I20.0 Unstable angina (principal); I10 Essential (primary) hypertension; E78.5 Hyperlipidemia, unspecified; E11.9 Type 2 diabetes mellitus without complications; Z23 Encounter for immunization; Z79.4 Long term (current) use of insulin; Z79.899 Other long term (current) drug therapy
CPT/HCPCS: 36415; 71045; 76937; 80048; 80061; 82947; 84484; 85025; 85379; 85610; 90471; 90732; 92928; 92929; 93005; 93306; 93458; 96372; 99152; 99153; 99285; C1725; C1893; G0378; J0461; J1644; J2003; J2250; J3010; J7030; Q9967